=== PATIENT | male | born 1990 | race Asian ===

== ENCOUNTER 2017-03-29 23:04 | Observation (INO) | payer OTHER ==
[~2017-03-29] VITALS: Ht 170.2 cm; Wt 72.6 kg
[2017-03-29] MEDS ORDERED: KETOROLAC TROMETHAMINE 30 MG/ML VIAL IV STA (23:29)
--- NOTE | 2017-03-29 23:40 | EMERGENCY ROOM VISIT NOTE ---
History Report prepared by Lynsey: Mague Denton Under the Supervision of: Dr. Sunni Harding D.O. First contact with patient: 23:23 Chief Complaint: FLANK PAIN Stated Complaint: URINARY SYMPTOMS History of Present Illness The patient is a 27 year old male who presents to the Emergency Room with complaints of persistent right flank pain that began prior to arrival. He currently rates his discomfort as a 3/10 in severity. The patient states that he went to Urgent Care yesterday after experiencing urinary symptoms for several days. He states that he was placed on Cipro and diagnosed with a urinary tract infection without giving a urinalysis. The patient states that he has noticed a dull pain to his left testicle and right flank. He states that today after a run he developed worsening pain to his right flank. The patient denies any history of a previous kidney stone. He denies any abdominal pain, but notes abdominal distention. The patient states that he has been experiencing heart palpitations and shakiness since being on the Cipro. He states that he works out often, noting that he runs every day. Source of History: patient Onset: prior to arrival Position: other (right flank) Symptom Intensity: 3/10 Quality: dull Timing: other (persistent) Note: Associated Symptoms: abdominal distention, heart palpitations, shakiness, dull pain to testicle Review of Systems See HPI for pertinent positives & negatives. A total of 10 systems reviewed and were otherwise negative. Past Medical & Surgical Medical Problems: (1) Urinary tract infection Family History No pertinent family history stated. Social History Smoking Status: Never Smoker Marital Status: single Occupation Status: [employer] student Current/Historical Medications Scheduled Ciprofloxacin Hcl (Cipro), 500 MG PO BID Scheduled PRN Ibuprofen (Motrin), 400 MG PO Q6H PRN for Pain Allergies Coded Allergies: Penicillins (Unverified Allergy, Unknown, childhood, 03/30/17) Physical Exam Vital Signs Date Time Temp Pulse Resp B/P (MAP) Pulse Ox O2 Delivery O2 Flow Rate FiO2 03/30/17 01:49 116 19 03/30/17 01:04 89 20 97 03/30/17 00:04 103 19 161/77 98 03/29/17 23:34 109 21 03/29/17 23:31 119/95 03/29/17 23:19 106 20 98 03/29/17 23:18 141/70 03/29/17 23:13 37.6 109 19 141/70 98 Room Air Physical Exam HEENT: Head - normocephalic and atraumatic Pupils are equal, round, and reactive to light. Extraocular eye muscles are intact, and sclera are anicteric. Nose - moist nasal mucosa without discharge. Mouth - moist buccal mucosa. Oropharynx is nonerythematous and there is no tonsillar exudate or edema noted. Neck: Supple; no JVD, nuchal rigidity, cervical lymphadenopathy. Heart: Tachycardic rate and regular rhythm. There is a normal S1 and S2 with no murmurs, clicks, or gallops appreciated. Lungs: Clear to auscultation bilaterally with no wheezes, rales, or rhonchi. Abdomen: Soft, completely nontender, nondistended, with good bowel sounds. There are no palpable pulsatile masses or hepatosplenomegaly. There is no guarding, rigidity, or rebound noted. Back: Right flank pain with palpation. No vesicular lesions noted on the skin. There was some mild erythema secondary to the patient scratching himself. Gu: Patient has no abnormal findings in the testicle, no tenderness, uncircumcised male genitalia. Extremities: No evidence of cyanosis, clubbing, or edema. There are easily palpable peripheral pulses. Skin: warm and dry with good turgor and no rashes. Medical Decision & Procedures ER Provider Diagnostic Interpretation: Radiology results as stated below per my review and the radiologist's interpretation: CT ABDOMEN AND PELVIS: No obstructing radiopaque urolithiasis or secondary sequela. Normal appearing appendix. Contracted gallbladder. Moderate colonic fecal retention. No free air or fluid. Patchy sclerosis bilateral superior femoral heads; differential considerations would include reactive sclerosis as well as possible early AVN. Radiologist: Jaime Fan MD Study ready at [id number] and initial results transmitted at 0057 Laboratory Results 03/29/17 23:10 Red Blood Count 5.38, Mean Corpuscular Volume 87.4, Mean Corpuscular Hemoglobin 30.1, Mean Corpuscular Hemoglobin Concent 34.5, Mean Platelet Volume 9.5, Neutrophils (%) (Auto) 79.0, Lymphocytes (%) (Auto) 13.1, Monocytes (%) (Auto) 5.9, Eosinophils (%) (Auto) 1.4, Basophils (%) (Auto) 0.3, Neutrophils # (Auto) 8.02, Lymphocytes # (Auto) 1.33, Monocytes # (Auto) 0.60, Eosinophils # (Auto) 0.14, Basophils # (Auto) 0.03 03/29/17 23:10 Test 03/29/17 23:10 03/29/17 23:40 03/30/17 01:45 White Blood Count 10.15 K/uL (4.8-10.8) Red Blood Count 5.38 M/uL (4.7-6.1) Hemoglobin 16.2 g/dL (14.0-18.0) Hematocrit 47.0 % (42-52) Mean Corpuscular Volume 87.4 fL (80-100) Mean Corpuscular Hemoglobin 30.1 pg (25-34) Mean Corpuscular Hemoglobin Concent 34.5 g/dl (32-36) Platelet Count 359 K/uL (130-400) Mean Platelet Volume 9.5 fL (7.4-10.4) Neutrophils (%) (Auto) 79.0 % Lymphocytes (%) (Auto) 13.1 % Monocytes (%) (Auto) 5.9 % Eosinophils (%) (Auto) 1.4 % Basophils (%) (Auto) 0.3 % Neutrophils # (Auto) 8.02 K/uL (1.4-6.5) Lymphocytes # (Auto) 1.33 K/uL (1.2-3.4) Monocytes # (Auto) 0.60 K/uL (0.11-0.59) Eosinophils # (Auto) 0.14 K/uL (0-0.5) Basophils # (Auto) 0.03 K/uL (0-0.2) RDW Standard Deviation 39.7 fL (36.4-46.3) RDW Coefficient of Variation 12.4 % (11.5-14.5) Immature Granulocyte % (Auto) 0.3 % Immature Granulocyte # (Auto) 0.03 K/uL (0.00-0.02) Anion Gap 12.0 mmol/L (3-11) Est Creatinine Clear Calc Drug Dose 66.0 ml/min Estimated GFR () 68.4 Estimated GFR (Non- 59.0 BUN/Creatinine Ratio 9.1 (10-20) Calcium Level 9.6 mg/dl (8.5-10.1) Magnesium Level 1.9 mg/dl (1.8-2.4) Total Bilirubin 0.4 mg/dl (0.2-1) Direct Bilirubin 0.1 mg/dl (0-0.2) Aspartate Amino Transf (AST/SGOT) 40 U/L (15-37) Alanine Aminotransferase (ALT/SGPT) 61 U/L (12-78) Alkaline Phosphatase 105 U/L (45-117) Total Protein 7.1 gm/dl (6.4-8.2) Albumin 4.5 gm/dl (3.4-5.0) Urine Color YELLOW Urine Appearance CLEAR (CLEAR) Urine pH 5.0 (4.5-7.5) Urine Specific [place] 1.013 (1.000-1.030) Urine Protein NEG (NEG) Urine Glucose (UA) NEG (NEG) Urine Ketones NEG (NEG) Urine Occult Blood NEG (NEG) Urine Nitrite NEG (NEG) Urine Bilirubin NEG (NEG) Urine Urobilinogen NEG (NEG) Urine Leukocyte Esterase NEG (NEG) Bedside Lactic Acid Venous 1.17 mmol/L (0.90-1.70) Laboratory results per my review. Medications Administered Medications (Trade) Dose Ordered Sig/Ignacio Route Start Time Stop Time Status Last Admin Dose Admin Ketorolac Tromethamine (Toradol Inj) 30 mg NOW STAT IV 03/29/17 23:29 03/29/17 23:33 DC 03/29/17 23:44 30 MG Sodium Chloride 1,000 ml @ 250 mls/hr Q4H STAT IV 03/30/17 01:32 03/30/17 04:14 DC 03/30/17 01:32 250 MLS/HR Potassium Chloride (Kcl 10 Meq / Wtr) 10 meq NOW STAT IV 03/30/17 01:32 03/30/17 01:33 DC 03/30/17 02:07 10 MEQ Procedure Medications Administered: Toradol Inj 30 mg IV, Potassium Chloride 10 meq IV, Sodium Chloride 1000 ml @ 250 mls/hr IV. ED Course 2326: Past medical records reviewed. The patient was evaluated in room A11B. A complete history and physical exam was performed. An IV lock was initiated and labs were drawn as above 2329: Ordered Toradol Inj 30 mg IV. 0120: I reevaluated the patient and he states that his back pain is only slightly better. He states that the real reason he came here was that he was still having left testicular pain. I performed a exam at this time. See physical exam for further detail. I discussed all the exam findings with him and I discussed the treatment plan. He verbalized complete understanding and agreement. He will be evaluated for further treatment. 0132: Potassium Chloride 10 meq IV, Sodium Chloride 1000 ml @ 250 mls/hr IV. 1342: I discussed the patients case with BELINDA Hernandez. He is going to evaluate the patient for further treatment. 1345: I reevaluated the patient at this time and he informed me that he takes several supplements. He additionally notes that he has been running excessively. Medical Decision The patient is a 27 year old male who presents to the ED with right flank pain. Differential diagnosis includes pyelonephritis, infected kidney stone, ureteral colic, rhabdomyolysis. Lab interpretation: Normal white blood cell count, Stable H&H, potassium is low at 3, BUN 15, Creatinine 1.6, glucose 203, urinalysis is normal, no blood. I attest that I have personally reviewed the patient's current medication list. Blood Pressure Screening: Patient was found to have a slightly elevated blood pressure due to circumstances. I do not believe that the patient requires hypertension monitoring. This is a 27-year-old male patient who presents with a mild fever and right flank pain. I'm concerned about the possibility of pyelonephritis. The patient 's currently taking Cipro but continues to have some dysuria, right flank pain, left testicular pain, and fever. The patient was noted to be significantly hyperglycemic and hypokalemic. The patient denies any history of hyperglycemia or diabetes. I discussed the case with the [facility] hospitalist and they will evaluate for further management. Consults Time Called: 0128 Consulting Physician: BELINDA Hernandez Returned Call: 1342 I discussed the patients case with BELINDA Hernandez. He is going to evaluate the patient for further treatment. Impression Primary Impression: Pyelonephritis Additional Impressions: Acute kidney injury Hyperglycemia Hypokalemia Scribe Attestation The scribe's documentation has been prepared under my direction and personally reviewed by me in its entirety. I confirm that the note above accurately reflects all work, treatment, procedures, and medical decision making performed by me. Departure Information Dispostion Being Evaluated By Hospitalist Problem Qualifiers
[2017-03-29 23:42] LABS: BASO % 0.3 %; BASO ABS # 0.03 K/uL (0-0.2); COMPLETE YES; EOS % 1.4 %; IG% 0.3 %; LYMPH % 13.1 %; LYMPH ABS # 1.33 K/uL (1.2-3.4); MEAN CELL VOLUME 87.4 fL (80-100); MEAN CORPUSCULAR HEMOGLOBIN 30.1 pg (25-34); MEAN CORPUSCULAR HGB CONC 34.5 g/dl (32-36); MEAN PLATELET VOLUME 9.5 fL (7.4-10.4); MONO % 5.9 %; PLATELET COUNT 359 K/uL (130-400); RED BLOOD COUNT 5.38 M/uL (4.7-6.1); WHITE BLOOD COUNT 10.15 K/uL (4.8-10.8)
[2017-03-29 23:54] LABS: URINE APPEARANCE CLEAR (CLEAR); URINE BILIRUBIN NEG (NEG); URINE COLOR YELLOW; URINE NITRITE NEG (NEG); URINE SPECIFIC GRAVITY 1.013 (1.000-1.030); UROBILINOGEN NEG (NEG)
[2017-03-29 23:56] LABS: MANUAL MICROSCOPIC REQUIRED? NO; REVIEW REQ? NO
[2017-03-29 23:59] LABS: BUN/CREATININE RATIO 9.1 (10-20); CALCIUM 9.6 mg/dl (8.5-10.1); CREATININE 1.6 mg/dl (0.60-1.40)
[2017-03-30] MEDS ORDERED: CIPR-255 PO (00:34)
[2017-03-30] MEDS ORDERED: IBUP-1459 PO (00:35)
[2017-03-30] MEDS ORDERED: POTASSIUM CHLORIDE 10 MEQ / 100ML WTR IV STA (01:32)
[2017-03-30] MEDS ORDERED: SODIUM CHLORIDE 0.9% 1000ML 1,000 ML IV STA (01:32)
[2017-03-30] MEDS ORDERED: ACETAMINOPHEN 325 MG TAB PO PRN (02:00)
[2017-03-30] MEDS ORDERED: ONDANSETRON INJ 2 MG/ML 2 ML VIAL IV PRN (02:00)
[2017-03-30 02:15] LABS: MAGNESIUM 1.9 mg/dl (1.8-2.4)
[2017-03-30] MEDS ORDERED: IV FLUIDS COMPLETED PRN (02:15)
[2017-03-30] MEDS ORDERED: POTASSIUM CHLORIDE 10 MEQ TABCR PO STA (02:47)
[2017-03-30 04:00] VITALS: BP 128/77; PULSE 93; TEMP 37.2; O2SAT 95; Ht 170.2 cm; Wt 72.6 kg
--- NOTE | 2017-03-30 04:37 | History and Physical ---
History & Physical Date & Time of Service: Mar 30, 2017 at 04:24 Chief Complaint: Acute Kidney Injury Primary Care Physician: No Doctor, Assigned History of Present Illness Source: patient The patient is a 27-year-old male who presents to the emergency department with right flank pain that began prior to arrival. He was seen at urgent care yesterday, and was placed on Cipro for presumptive urinary tract infection but did not have a urinalysis. The pain occasionally radiates toward his right testicle. He has not had a history of kidney stones or any other kidney problems in the past. He reports that he's been having heart palpitations in the past, but has been worse since he started on Cipro yesterday. He does upon questioning report that he takes several muscle building supplements. Past Medical/Surgical History Medical Problems: (1) Urinary tract infection Status: Resolved Social History Smoking Status: Never Smoker Smokeless Tobacco Use: No Alcohol Use: none Drug Use: none Marital Status: single Housing status: lives alone Occupational Status: [employer] student Multi-Drug Resistant Organisms History of MDRO: No Allergies Coded Allergies: Penicillins (Unverified Allergy, Unknown, childhood, 03/30/17) Home Medications Scheduled Ciprofloxacin Hcl (Cipro), 500 MG PO BID Scheduled PRN Ibuprofen (Motrin), 400 MG PO Q6H PRN for Pain Review of Systems The patient denies chest pain, shortness of breath, cough, lower extremity swelling, sore throat, fevers, chills, sweats, weight change, fatigue, nausea, vomiting, blood in urine or stool, dysuria, urinary frequency or urgency, lightheadedness, dizziness, headache, memory loss, rash, abnormal bruising or bleeding, imbalance, focal or generalized weakness, numbness or tingling in arms or legs, arthralgias or myalgias, night sweats, or allergy symptoms. The review of systems is otherwise negative other than for that already noted above, and at least 10 systems have been reviewed. Physical Exam Vital Signs Date Time Temp Pulse Resp B/P (MAP) Pulse Ox O2 Delivery O2 Flow Rate FiO2 03/30/17 04:00 37.2 93 20 128/77 95 Room Air 03/30/17 03:06 92 17 134/70 97 03/30/17 02:49 95 12 96 03/30/17 02:34 105 17 96 03/30/17 02:31 159/76 03/30/17 02:19 115 19 95 03/30/17 02:08 152/80 03/30/17 01:49 116 19 03/30/17 01:04 89 20 97 03/30/17 00:04 103 19 161/77 98 03/29/17 23:34 109 21 03/29/17 23:31 119/95 03/29/17 23:19 106 20 98 03/29/17 23:18 141/70 03/29/17 23:13 37.6 109 19 141/70 98 Room Air The patient is awake, well-developed and adequately nourished, alert and oriented 3, normocephalic and atraumatic, lying in bed and in no acute distress. HEENT--PERRL, EOMI, mucous membranes and oropharynx dry. Neck--supple, no JVD or bruits, thyroid normal, trachea midline, no adenopathy. Heart--normal S1 and S2, no extra beats, no murmurs, rubs or gallops. Lungs--clear bilaterally with good air movement, no respiratory distress, no accessory muscle use. Abdomen--normal bowel sounds and soft, right flank tenderness, nondistended, no hernias or masses, no organomegaly. Extremities--no cyanosis, clubbing or edema. There are good distal pulses b/l. Dermatologic--normal skin turgor, normal color, warm and dry, no abnormal lymph nodes, no rash. Neurologic--cranial nerves II through XII grossly intact, motor and sensory examination normal. Rheumatologic--normal range of motion, nontender, muscles and joints. Psychiatric--normal affect. Diagnostics Laboratory Results Results Past 24 Hours Test 03/29/17 23:10 03/29/17 23:40 03/30/17 01:45 Range/Units White Blood Count 10.15 4.8-10.8 K/uL Red Blood Count 5.38 4.7-6.1 M/uL Hemoglobin 16.2 14.0-18.0 g/dL Hematocrit 47.0 42-52 % Mean Corpuscular Volume 87.4 80-100 fL Mean Corpuscular Hemoglobin 30.1 25-34 pg Mean Corpuscular Hemoglobin Concent 34.5 32-36 g/dl Platelet Count 359 130-400 K/uL Mean Platelet Volume 9.5 7.4-10.4 fL Neutrophils (%) (Auto) 79.0 % Lymphocytes (%) (Auto) 13.1 % Monocytes (%) (Auto) 5.9 % Eosinophils (%) (Auto) 1.4 % Basophils (%) (Auto) 0.3 % Neutrophils # (Auto) 8.02 1.4-6.5 K/uL Lymphocytes # (Auto) 1.33 1.2-3.4 K/uL Monocytes # (Auto) 0.60 0.11-0.59 K/uL Eosinophils # (Auto) 0.14 0-0.5 K/uL Basophils # (Auto) 0.03 0-0.2 K/uL RDW Standard Deviation 39.7 36.4-46.3 fL RDW Coefficient of Variation 12.4 11.5-14.5 % Immature Granulocyte % (Auto) 0.3 % Immature Granulocyte # (Auto) 0.03 0.00-0.02 K/uL Sodium Level 134 136-145 mmol/L Potassium Level 3.0 3.5-5.1 mmol/L Chloride Level 96 98-107 mmol/L Carbon Dioxide Level 26 21-32 mmol/L Anion Gap 12.0 3-11 mmol/L Blood Urea Nitrogen 15 7-18 mg/dl Creatinine 1.60 0.60-1.40 mg/dl Est Creatinine Clear Calc Drug Dose 66.0 ml/min Estimated GFR () 68.4 Estimated GFR (Non- 59.0 BUN/Creatinine Ratio 9.1 10-20 Random Glucose 203 70-99 mg/dl Calcium Level 9.6 8.5-10.1 mg/dl Magnesium Level 1.9 1.8-2.4 mg/dl Total Bilirubin 0.4 0.2-1 mg/dl Direct Bilirubin 0.1 0-0.2 mg/dl Aspartate Amino Transf (AST/SGOT) 40 15-37 U/L Alanine Aminotransferase (ALT/SGPT) 61 12-78 U/L Alkaline Phosphatase 105 45-117 U/L Total Protein 7.1 6.4-8.2 gm/dl Albumin 4.5 3.4-5.0 gm/dl Urine Color YELLOW Urine Appearance CLEAR CLEAR Urine pH 5.0 4.5-7.5 Urine Specific [place] 1.013 1.000-1.030 Urine Protein NEG NEG Urine Glucose (UA) NEG NEG Urine Ketones NEG NEG Urine Occult Blood NEG NEG Urine Nitrite NEG NEG Urine Bilirubin NEG NEG Urine Urobilinogen NEG NEG Urine Leukocyte Esterase NEG NEG Bedside Lactic Acid Venous 1.17 0.90-1.70 mmol/L Microbiology Results 03/30/17 Blood Culture, Received Pending 03/30/17 Blood Culture, Received Pending 03/29/17 Urine Culture, Received Pending Impression Assessment and Plan Acute kidney injury/hypokalemia/elevated temperature/right flank pain/with normal CT of abdomen and pelvis--the patient will be admitted to the telemetry unit due to tachycardia. He will be kept nothing by mouth, place on IV fluids at 200 ML's per hour. We'll order a renal ultrasound. We'll consult nephrology for the a.m. He was advised to stop all muscle building supplements. CK enzymes have been added to the ED laboratories to assess for possible rhabdomyolysis. We will hold on any antibiotics at this time. He was given oral potassium 40 mEq in the ED. We'll also add a urine microalbumin. Hyperglycemia--blood sugar was 203. We'll check hemoglobin A1c in the a.m. The patient reports he's had no history of elevated blood sugars, and there is no diabetes in the family. Level of Care Telemetry Advanced Directives Existing Advance Directive: No Existing Living Will: No Existing Power of Music Autographer: No Resuscitation Status FULL RESUSCITATION VTE Prophylaxis VTE Risk Assessment Done? Y/N: Yes Risk Level: Low Given or contraindicated: SCD's Social Service Consult None Apply
[2017-03-30] MEDS: SODIUM CHLORIDE 0.9% 1000ML 1,000 ML IV SCH ×2 (04:38→07:30)
--- NOTE | 2017-03-30 06:51 | DIAGNOSTIC IMAGING REPORT ---
ABDOMEN AND PELVIS CT WITHOUT CONTRAST CT DOSE: 754.49 mGy.cm HISTORY: Flank pain. Pain. eval for right sided stone TECHNIQUE: Multiaxial CT images of the abdomen and pelvis were performed without the use of intravenous and oral contrast according to the standard department stone protocol. COMPARISON STUDY: None. FINDINGS: Lung bases are clear. Liver spleen and pancreas are unremarkable in overall morphology. Kidneys are considered negative for calcification or hydronephrosis. Ureters normal in course and caliber. The appendix is normal. Bowel pattern is nonobstructive. Bladder is midline. There are no contained calcifications. There are scattered colonic diverticuli. There is no evidence of diverticulitis. IMPRESSION: Scattered colonic diverticuli. Otherwise negative study. Electronically signed by: Davey Pennington M.D. 03/30/2017 6:50 AM Dictated Date/Time: 03/30/2017 6:48 AM
--- NOTE | 2017-03-30 07:05 | DIAGNOSTIC IMAGING REPORT ---
RENAL ULTRASOUND HISTORY: Renal insufficiency ACUTE KIDNEY INJURY COMPARISON: None. FINDINGS: Right kidney: Maximum dimension 9.7 cm. No evidence for hydronephrosis. Normal corticomedullary differentiation and cortical thickness. Left kidney: Maximum dimension 10.3 cm. No evidence for hydronephrosis. Normal corticomedullary differentiation and cortical thickness. Bladder: Trace bladder debris IMPRESSION: Normal renal ultrasound. Trace bladder debris. Electronically signed by: Davey Pennington M.D. 03/30/2017 7:04 AM Dictated Date/Time: 03/30/2017 7:03 AM
[2017-03-30 07:24] VITALS: BP 114/67; PULSE 68; TEMP 36.7; O2SAT 96
[2017-03-30 07:39] LABS: ESTIMATED AVERAGE GLUCOSE 108 mg/dl; HA1C FLAG Normal (Normal)
[2017-03-30 10:09] LABS: BUN/CREATININE RATIO 10.5 (10-20); CALCIUM 9.1 mg/dl (8.5-10.1); CREATININE 1.1 mg/dl (0.60-1.40); PHOSPHORUS 3.2 mg/dl (2.5-4.9); POTASSIUM 3.8 mmol/L (3.5-5.1)
--- NOTE | 2017-03-30 11:04 | Nephrology Consultation ---
Nephrology Consultation Date & Providers Date of Consultation: Mar 30, 2017. Primary Care Provider: No Doctor, Assigned Referring Provider: Reason for Consultation Evaluation and management for acute kidney injury and hypokalemia. History of Present Illness Babatunde Is a 27-year-old young male with no significant past medical history admitted to the hospital yesterday with her back and flank pain and palpitation. Nephrologic consult was requested as he was found to have acute kidney injury. Electronic medical records were reviewed in detail during patient's visit. He was doing well until 3 days ago when he started noticing some testicular discomfort. he went to urgent care and he was given Cipro and ibuprofen and was told he has urinary tract infection. Yesterday afternoon he started noticing palpitation, abdominal brought doing and sharp pain in his lower back and presented to the emergency room for further evaluation. Lab in the ED showed acute kidney injury, creatinine was 1.6 with no prior history of chronic kidney disease. Potassium was 3.0. He had low-grade fever but no leukocytosis. Urinalysis was negative for hematuria, proteinuria pyuria. Renal ultrasound showed otherwise normal size kidney without any hydronephrosis or perinephric stranding. Abdomen pelvis CT scan was negative for any significant intra- abdominal pathology. Was admitted and started on IV hydration. ibuprofen and ciprofloxacin was discontinued. He reports he has been drinking well but since yesterday he also noticed abdominal distension. He has been urinating well. Currently denies any dysuria, hematuria. his back pain seems to have improved but still has some discomfort. Still has occasional discomfort in his left testicle. He has been tachycardic, heart rate now controlled and denies any palpitation, chest pain or shortness of breath. Initially blood pressure was elevated which currently improved. On admission blood glucose was elevated which improved this morning and hemoglobin A1c was 5.4, no history of diabetes. Allergies Coded Allergies: Penicillins (Unverified Allergy, Unknown, childhood, 03/30/17) Inpatient Medications Current Inpatient Medications Medications (Trade) Dose Ordered Sig/Ignacio Route Start Time Stop Time Status Last Admin Dose Admin Sodium Chloride 1,000 ml @ 200 mls/hr Q5H IV 03/30/17 04:15 04/29/17 04:14 03/30/17 07:30 200 MLS/HR Acetaminophen (Tylenol Tab) 650 mg Q4H PRN PO 03/30/17 02:00 04/29/17 01:59 Ondansetron HCl (Zofran Inj) 4 mg Q6H PRN IV 03/30/17 02:00 04/29/17 01:59 Miscellaneous (Iv Fluids Completed) 1 ea PRN PRN N/A 03/30/17 02:15 03/30/18 02:14 Social History Smoking Status: Never Smoker Smokeless Tobacco Use: No Alcohol Use: none Drug Use: none Marital Status: single Housing Status: lives alone Occupation: [employer] student Review of Systems A complete review of systems was performed. Pertinent positives are noted above. All other systems are negative. Physical Exam Date Time Temp Pulse Resp B/P (MAP) Pulse Ox O2 Delivery O2 Flow Rate FiO2 03/30/17 08:00 Room Air 03/30/17 07:24 36.7 68 18 114/67 (83) 96 Room Air 03/30/17 04:00 37.2 93 20 128/77 95 Room Air 03/30/17 03:06 92 17 134/70 97 03/30/17 02:49 95 12 96 03/30/17 02:34 105 17 96 03/30/17 02:31 159/76 03/30/17 02:19 115 19 95 03/30/17 02:08 152/80 03/30/17 01:49 116 19 03/30/17 01:04 89 20 97 03/30/17 00:04 103 19 161/77 98 03/29/17 23:34 109 21 03/29/17 23:31 119/95 03/29/17 23:19 106 20 98 03/29/17 23:18 141/70 03/29/17 23:13 37.6 109 19 141/70 98 Room Air GENERAL: Young male, AAA x 3, pleasant, healthy-appearing, not in any distress. HEENT: Atraumatic, normocephalic. NECK: Supple, no JVD, no carotid bruit appreciated. ENT: No sinus tenderness MOUTH and THROAT: Moist oral mucosa, no oral ulcer or pharyngeal erythema RESPIRATORY: Normal breathing efforts, no accessory muscle use, clear to auscultation bilaterally, no wheezes or rales. CARDIOVASCULAR: S1, S2 normal, rate rhythm regular. ABDOMEN: Soft, nontender, positive bowel sound. MUSCULOSKELETAL: No CVA tenderness. No joint swelling, erythema or tenderness. Normal range of motion. SKIN: No skin rash EXTREMITY: No lower extremity edema NEURO: No gross focal neurological deficit, speech fluent. PSYCHIATRY: Normal mood and judgment Laboratory Results Last 24 Hours Test 03/29/17 23:10 03/29/17 23:40 03/30/17 01:45 03/30/17 04:58 White Blood Count 10.15 K/uL Red Blood Count 5.38 M/uL Hemoglobin 16.2 g/dL Hematocrit 47.0 % Mean Corpuscular Volume 87.4 fL Mean Corpuscular Hemoglobin 30.1 pg Mean Corpuscular Hemoglobin Concent 34.5 g/dl Platelet Count 359 K/uL Mean Platelet Volume 9.5 fL Neutrophils (%) (Auto) 79.0 % Lymphocytes (%) (Auto) 13.1 % Monocytes (%) (Auto) 5.9 % Eosinophils (%) (Auto) 1.4 % Basophils (%) (Auto) 0.3 % Neutrophils # (Auto) 8.02 K/uL Lymphocytes # (Auto) 1.33 K/uL Monocytes # (Auto) 0.60 K/uL Eosinophils # (Auto) 0.14 K/uL Basophils # (Auto) 0.03 K/uL RDW Standard Deviation 39.7 fL RDW Coefficient of Variation 12.4 % Immature Granulocyte % (Auto) 0.3 % Immature Granulocyte # (Auto) 0.03 K/uL Sodium Level 134 mmol/L Potassium Level 3.0 mmol/L Chloride Level 96 mmol/L Carbon Dioxide Level 26 mmol/L Anion Gap 12.0 mmol/L Blood Urea Nitrogen 15 mg/dl Creatinine 1.60 mg/dl Est Creatinine Clear Calc Drug Dose 66.0 ml/min Estimated GFR () 68.4 Estimated GFR (Non- 59.0 BUN/Creatinine Ratio 9.1 Random Glucose 203 mg/dl Calcium Level 9.6 mg/dl Magnesium Level 1.9 mg/dl Total Bilirubin 0.4 mg/dl Direct Bilirubin 0.1 mg/dl Aspartate Amino Transf (AST/SGOT) 40 U/L Alanine Aminotransferase (ALT/SGPT) 61 U/L Alkaline Phosphatase 105 U/L Total Creatine Kinase 580 U/L 633 U/L Total Protein 7.1 gm/dl Albumin 4.5 gm/dl Urine Color YELLOW Urine Appearance CLEAR Urine pH 5.0 Urine Specific [place] 1.013 Urine Protein NEG Urine Glucose (UA) NEG Urine Ketones NEG Urine Occult Blood NEG Urine Nitrite NEG Urine Bilirubin NEG Urine Urobilinogen NEG Urine Leukocyte Esterase NEG Urine Random Microalbumin 11.8 mg/L Bedside Lactic Acid Venous 1.17 mmol/L Estimated Average Glucose 108 mg/dl Hemoglobin A1c 5.4 % Test 03/30/17 09:01 Sodium Level 143 mmol/L Potassium Level 3.8 mmol/L Chloride Level 109 mmol/L Carbon Dioxide Level 28 mmol/L Anion Gap 6.0 mmol/L Blood Urea Nitrogen 12 mg/dl Creatinine 1.10 mg/dl Est Creatinine Clear Calc Drug Dose 96.0 ml/min Estimated GFR () 107.6 Estimated GFR (Non- 92.8 BUN/Creatinine Ratio 10.5 Random Glucose 91 mg/dl Calcium Level 9.1 mg/dl Phosphorus Level 3.2 mg/dl Albumin 3.7 gm/dl Impression (1) Acute kidney injury (2) Hypokalemia (3) Hyperglycemia Young male with acute kidney injury with recent exposure to Cipro and ibuprofen for testicular discomforted. Creatinine was 1.6 on admission with no prior history of chronic kidney disease. Urinalysis was negative for proteinuria hematuria pyuria. Renal ultrasound and abdomen pelvis CT scan was otherwise unremarkable. Acute kidney injury could be hemodynamically mediated in the setting of NSAID exposure and questionable poor p.o. intake with antibiotic. Unlikely pyelonephritis or acute interstitial nephritis as a urinalysis benign, renal ultrasound and CT imaging was otherwise unremarkable. Recommendations --currently blood pressure, volume status and electrolyte acceptable, potassium normalized, acute kidney injury resolved, creatinine from this morning lab was 1.2, urinalysis otherwise unremarkable. --Suggest discontinuing IV fluid as patient reports them decent appetite and p.o. intake -- advise patient to avoid all NSAIDs going forward and avoid volume depletion --will sign off and no further nephrology follow-up needed at this time -- however, going forward patient should have sent a repeat renal function electrolyte check few days after discharge and if everything stays normal then he should have renal panel and urinalysis in next few months. Thank you for allowing me to participate in your patient's care. It was a pleasure to see Hongru This chart was completed utilizing [employer] Speech and voice recognition software. Grammatical errors, random word insertions, pronoun errors and incomplete sentences are occasional consequences of this system. Any questions or concerns about the content, text or information contained within the body of this dictation should be addressed directly to the physician for clarification.
[2017-03-30 11:41] VITALS: BP 120/76; PULSE 69; TEMP 37; O2SAT 94
--- NOTE | 2017-03-30 11:57 | Discharge Instructions ---
Discharge Instructions Date of Service Mar 30, 2017. Admission Reason for Admission: Acute Kidney Injury Discharge Discharge Diagnosis / Problem: Acute kidney injury, resolved Discharge Goals Goal(s): Improve function, Diagnostic testing (repeat labs in a week) Activity Recommendations Activity Limitations: resume your previous activity Lifting Limitations: none Exercise/Sports Limitations: as tolerated May Resume Sexual Activity: when tolerated Shower/Bathe: no limitations Driving or Machine Use: no limitations . Instructions / Follow-Up Instructions / Follow-Up Medications: You need to avoid NSAIDs in the future (ibuprofen, naproxen etc). You can safely use Tylenol for pain. avoid muscle supplements Nephrology recommends that you get repeat lab work in 10 days. Please bring script to front entrance of hospital and they will set up for blood draw. You will need a urinalysis so be sure to come to lab with full bladder. They will page me with results and I will call you if anything abnormal FOLLOW UP - please establish with a physician in [place] when you move there. You will need repeat BMP, magnesium, phosphorus and urinalysis in a few months. Current Hospital Diet Patient's current hospital diet: Regular Diet Discharge Diet Recommended Diet: Regular Diet Pending Studies Studies pending at discharge: no Laboratory Results Hemoglobin A1c Test 03/30/17 04:58 Range/Units Estimated Average Glucose 108 mg/dl Hemoglobin A1c 5.4 4.5-5.6 % Medical Emergencies . Who to Call and When: Medical Emergencies: If at any time you feel your situation is an emergency, please call 911 immediately. . Non-Emergent Contact Non-Emergency issues call your: Primary Care Provider Call Non-Emergent contact if: you have any medication questions . . "Provider Documentation" section prepared by Vinicio Pimentel. . VTE Core Measure Inpt VTE Proph given/why not?: SCD's [place] Drug Monitoring Program Search Results: no issues identified
[2017-03-30 12:01] VITALS: BP 120/76; PULSE 69; TEMP 37; O2SAT 94
--- NOTE | 2017-03-31 08:11 | Discharge Summary ---
Discharge Summary Date of Service March 30, 2017. Discharge Summary Admission Date: Mar 30, 2017 at 01:54 Discharge Date: Mar 30, 2017 Discharge Disposition: Home Principal Diagnosis: DWAINE, resolved Problems/Secondary Diagnoses: Hyperglycemia, normal HbA1c Elevated CK Procedures: Renal US - normal CT abdomen/pelvis - normal Consultations: Nephrology Medication Reconciliation Discontinued Medications: Ciprofloxacin Hcl (Cipro) 500 Mg Tab 500 MG PO BID for 7 Days, #14 TAB BEGIN 03/28/17 X 7 DAYS Ibuprofen (Motrin) 400 Mg Tab 400 MG PO Q6H PRN for Pain, TAB Discharge Exam Patient was feeling fine the day of discharge in the morning. Discussed with him that his Cr was trending down appropriately. He had no signs of infection on either UA or imaging and thus the Cipro could be stopped. He reported that he did not really take NSAIDs very often, certainly not taking them recently. Appreciated consultation from Dr. Davenport, recommended d/c to home with repeat labs in a week. Went over details of discharge plan with patient. He said that he had graduated from [employer] and was moving to [place] in early May for a graduate program at [employer]. He did not have a family doctor. I offered to follow up on his lab work, planned to get labs the week of 04/09 the next time I would be on shift, script given for BMP and UA for that week. Patient instructed to drink water and get rest, no excessive exercise, no NSAIDs and no muscle supplements. Review of Systems: Constitutional: No fever, No chills, No sweats, No weight loss, No weakness , No fatigue, No problem reported Eyes: No worsening of vision, No eye pain, No redness, No discharge, No diplopia, No problem reported ENT: No hearing loss, No unusual epistaxis, No nasal symptoms, No sore throat, No tinnitus, No dental problems, No trouble swallowing, No problem reported Respiratory: No cough, No sputum, No wheezing, No shortness of breath, No dyspnea on exertion, No dyspnea at rest, No hemoptysis, No problem reported Cardiovascular: No chest pain, No orthopnea, No PND, No edema, No claudication, No palpitations, No problem reported Abdomen: No pain, No nausea, No vomiting, No diarrhea, No constipation, No GI bleeding, No problem reported Musculoskeletal: No joint pain, No muscle pain, No swelling, No calf pain, No problem reported Genitourinary - Male: No hematuria, No dysuria, No urinary frequency, No urinary urgency Neurologic: No memory loss, No paralysis, No weakness, No numbness/tingling , No vertigo, No balance problems, No problem reported Psychiatric: No depression symptoms, No anhedonism, No anxiety, No insomnia , No substance abuse, No problem reported Endocrine: No fatigue, No excessive thirst, No excessive urination, No problem reported Hematologic / Lymphatic: No abnormal bleeding/bruising, No clotting problems , No swollen lymph nodes, No night sweats, No problem reported Integumentary: No rash, No itch, No new/changing skin lesions, No color change, No bleeding, No problem reported Physical Exam: General Appearance: WD/WN, no apparent distress Eyes: normal inspection, EOMI, sclerae normal ENT: normal ENT inspection, hearing grossly normal, pharynx normal Neck: supple, no adenopathy, no JVD, trachea midline Respiratory/Chest: chest non-tender, lungs clear, normal breath sounds, no respiratory distress, no accessory muscle use Cardiovascular: regular rate, rhythm, no edema, no gallop, no JVD, no murmur , normal peripheral pulses Abdomen / GI: normal bowel sounds, non tender, soft, no organomegaly Extremities: normal inspection, no calf tenderness, normal capillary refill , no pedal edema, normal range of motion, pelvis stable Neurologic/Psychiatric: yeast pumper II-XII nml as tested, no motor/sensory deficits , alert, normal mood/affect, normal reflexes, oriented x 3 Skin: normal color, warm/dry, no rash Lymphatic: no adenopathy Hospital Course 27 yo student from [employer], presented with flank pain, elevated Cr - DWAINE: unclear etiology, no clinically dehydrated, taking Cipro but only short while, and no excessive exercise although he is quite active taking muscle supplements, says he is not taking more than instructed repeat Cr in the morning 1.1, down from 1.6 on admission after aggressive IV fluids CK mildly elevated, no muscle pain electrolytes stable reviewed imaging, CT and US showed normal kidneys, no kidney stones appreciate nephrology consult, cleared for discharge, avoid NSAIDs and supplements, get rest, fluids will repeat labs the week of 04/09 with BMP, Mag, Phos and UA moving to [place] in May, will establish care with a physician once there, should have repeat labs in several months - Hyperglycemia: unclear why, his A1c is 5.4 resolved d/c home with repeat labs in 10 days, I will personally follow up results as he does not have a physician, cannot go to [facility] [employer] cause 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 Discharge Instructions Please refer to the electronic Patient Visit Report (Discharge Instructions) for additional information. Follow-Up repeat labs in 10 days
== END 2017-03-30 12:30 | disposition home or self-care (01) ==
LOC: EDBD 23:04 → C.EDA 23:07 → C.MED 03-30 01:54 → ENRESERV 03-30 02:04
PROVIDERS: ADMIT Hospitalist; ATTEND Internal Medicine
DX: N17.9 Acute kidney failure, unspecified (principal); R73.9 Hyperglycemia, unspecified; E87.6 Hypokalemia

== ENCOUNTER 2017-03-30 18:46 | Inpatient (IN) | payer OTHER ==
[~2017-03-30] VITALS: Ht 170.2 cm; Wt 73.6 kg
[~2017-03-30 18:46] MED LIST: CIPR-255 PO; IBUP-1459 PO
[2017-03-30] MEDS ORDERED: ACETAMINOPHEN 325 MG TAB PO STA (19:08)
[2017-03-30] MEDS ORDERED: SODIUM CHLORIDE 0.9% 1000ML 1,000 ML IV STA ×2 (19:08→20:41)
[2017-03-30] MEDS ORDERED: LORAZEPAM 2 MG/ML 1 ML VIAL IV STA (19:16)
--- NOTE | 2017-03-30 19:33 | EMERGENCY ROOM VISIT NOTE ---
History Report prepared by Lynsey: Georgie Walton Under the Supervision of: Dr. Madison Rock M.D. First contact with patient: 19:00 Chief Complaint: ARM PAIN Stated Complaint: CIPRO RELATED - RT ARM PAIN,KIDNEY PAIN History of Present Illness The patient is a 27 year old male who presents to the Emergency Room with complaints of persistent right arm weakness starting today. The patient states that his "muscles are dissolving." He reports tingling in his right hand. He does not have any pain or symptoms in any other joints/extremities. He was evaluated at an Urgent Care 2 days ago for complaints of testicular pain and burning with urination. He was started on Cipro by the Urgent Care. He was admitted on March 29 for pyelonephritis. The last time he took Cipro table was about 24 hours ago. He has taken 3 tablets of Cipro in total. He stopped taking the Cipro and has not taken any further antibiotics. He had a urinalysis this morning which was normal. He also currently complains of right flank pain. He did not have anything today besides a banana and water. He did not take any supplements, homeopathic agents, or pain medications. He denies any recent heavy lifting, trauma, or injuries. He also denies fevers, chills, or any other complaints. He does not have a history of diabetes. Source of History: patient Onset: today Position: arm (right) Quality: other (weakness) Timing: other (persistent) Associated Symptoms: No fevers, No chills Review of Systems See HPI for pertinent positives & negatives. A total of 10 systems reviewed and were otherwise negative. Past Medical & Surgical Medical Problems: (1) Pyelonephritis (2) Urinary tract infection Family History Patient reports no known family medical history. Social History Smoking Status: Never Smoker Drug Use: none Marital Status: single Occupation Status: [employer] student Current/Historical Medications No Active Prescriptions or Reported Meds Allergies Coded Allergies: Penicillins (Unverified Allergy, Unknown, childhood, 03/30/17) Physical Exam Vital Signs Date Time Temp Pulse Resp B/P (MAP) Pulse Ox O2 Delivery O2 Flow Rate FiO2 03/30/17 21:00 36.9 109 20 117/61 Room Air 03/30/17 18:50 36.9 123 18 128/84 95 Room Air Physical Exam Vital signs reviewed. General: Well-appearing, in no significant distress. HEENT: No scleral icterus, PERRLA, neck supple. Atraumatic. Cardiovascular: Regular rate and rhythm, no extra sounds. Pulmonary: Clear to auscultation bilaterally, normal work of breathing. Abdomen: Soft, nontender, nondistended, positive bowel sounds. Scrotal : Normal male genitals, not circumcised, minimal tenderness over the left epididymis. Musculoskeletal: Atraumatic, no peripheral edema. Neurologic: Patient awake alert and oriented x 3. Cranial nerves 2 through 12 grossly intact. 4/5 strength of the right bicep, 5/5 in the right triceps, minimal tenderness to palpation over the proximal right arm with no swelling or ecchymosis, no pain with range of motion of the elbow, neurovascularly intact distally. Skin: Warm, dry, no rash Medical Decision & Procedures ER Provider Diagnostic Interpretation: X-ray results as stated below per interpretation by me and the radiologist: RIGHT ELBOW 3 VIEWS CLINICAL HISTORY: Right elbow injury. No reported history of trauma. FINDINGS: 3 views of the right elbow are obtained. No prior studies are available for comparison at the time of dictation. The skeletal structures are well mineralized. No fracture is seen. The joint spaces of the elbow are well-maintained. No joint effusion is identified. Dorsal soft tissue edema is noted. IMPRESSION: Mild dorsal soft tissue swelling with no acute bony abnormality. Electronically signed by: Mandeep Braun M.D. 03/30/2017 8:28 PM Dictated Date/Time: 03/30/2017 8:27 PM US results as stated below per my review and radiologist interpretation: ULTRASOUND RIGHT UPPER EXTREMITY VENOUS CLINICAL HISTORY: Right arm pain. COMPARISON STUDY: No priors.. TECHNIQUE: Real-time, grayscale, and color Doppler sonography of the deep veins of the right upper extremity is performed. Compression and augmentation were utilized. FINDINGS: There is no sonographic evidence of deep venous thrombosis identified in the right upper extremity. The right internal jugular, axillary, and brachial veins are patent and normally compressible. Normal venous waveforms and augmentation are seen within the right subclavian vein. The cephalic and basilic veins are clear. The visualized radial and ulnar veins are patent. IMPRESSION: There is no sonographic evidence of deep venous thrombosis identified in the right upper extremity. Electronically signed by: Mandeep Braun M.D. 03/30/2017 8:16 PM Dictated Date/Time: 03/30/2017 8:15 PM Laboratory Results 03/30/17 19:29 Red Blood Count 5.14, Mean Corpuscular Volume 87.7, Mean Corpuscular Hemoglobin 29.4, Mean Corpuscular Hemoglobin Concent 33.5, Mean Platelet Volume 9.1, Neutrophils (%) (Auto) 76.2, Lymphocytes (%) (Auto) 16.2, Monocytes (%) (Auto) 5.9, Eosinophils (%) (Auto) 1.1, Basophils (%) (Auto) 0.4, Neutrophils # (Auto) 3.48, Lymphocytes # (Auto) 0.74, Monocytes # (Auto) 0.27, Eosinophils # (Auto) 0.05, Basophils # (Auto) 0.02 Test 03/30/17 19:29 03/30/17 20:55 White Blood Count 4.57 K/uL (4.8-10.8) Red Blood Count 5.14 M/uL (4.7-6.1) Hemoglobin 15.1 g/dL (14.0-18.0) Hematocrit 45.1 % (42-52) Mean Corpuscular Volume 87.7 fL (80-100) Mean Corpuscular Hemoglobin 29.4 pg (25-34) Mean Corpuscular Hemoglobin Concent 33.5 g/dl (32-36) Platelet Count 303 K/uL (130-400) Mean Platelet Volume 9.1 fL (7.4-10.4) Neutrophils (%) (Auto) 76.2 % Lymphocytes (%) (Auto) 16.2 % Monocytes (%) (Auto) 5.9 % Eosinophils (%) (Auto) 1.1 % Basophils (%) (Auto) 0.4 % Neutrophils # (Auto) 3.48 K/uL (1.4-6.5) Lymphocytes # (Auto) 0.74 K/uL (1.2-3.4) Monocytes # (Auto) 0.27 K/uL (0.11-0.59) Eosinophils # (Auto) 0.05 K/uL (0-0.5) Basophils # (Auto) 0.02 K/uL (0-0.2) RDW Standard Deviation 40.6 fL (36.4-46.3) RDW Coefficient of Variation 12.6 % (11.5-14.5) Immature Granulocyte % (Auto) 0.2 % Immature Granulocyte # (Auto) 0.01 K/uL (0.00-0.02) Magnesium Level 2.1 mg/dl (1.8-2.4) Direct Bilirubin 0.1 mg/dl (0-0.2) Thyroid Stimulating Hormone (TSH) 0.440 uIu/ml (0.300-4.500) Urine Color YELLOW Urine Appearance CLEAR (CLEAR) Urine pH 5.0 (4.5-7.5) Urine Specific [place] 1.013 (1.000-1.030) Urine Protein NEG (NEG) Urine Glucose (UA) NEG (NEG) Urine Ketones TRACE (NEG) Urine Occult Blood NEG (NEG) Urine Nitrite NEG (NEG) Urine Bilirubin NEG (NEG) Urine Urobilinogen NEG (NEG) Urine Leukocyte Esterase NEG (NEG) Laboratory results per my review. Medications Administered Medications (Trade) Dose Ordered Sig/Ignacio Route Start Time Stop Time Status Last Admin Dose Admin Sodium Chloride 1,000 ml @ 999 mls/hr Q1H1M STAT IV 03/30/17 19:08 03/30/17 20:08 DC 03/30/17 19:31 999 MLS/HR Sodium Chloride 1,000 ml @ 200 mls/hr Q5H STAT IV 03/30/17 20:41 03/30/17 22:29 DC 03/30/17 21:18 200 MLS/HR ED Course 1899: Past medical records reviewed. The patient was evaluated in room B05. A complete history and physical examination was performed. 1907: Sodium Chloride 1000 ml @ 999 mls/hr IV 2040: Sodium Chloride 1000 ml @ 200 mls/hr IV 2030: Upon reevaluation, the patient is resting comfortably. I discussed laboratory and radiographic results with him. He verbalized agreement of the treatment plan. The patient will be evaluated for further management and care. 2044: [facility] the [facility] Decision Medication Reconciliation: I attest that I have personally reviewed the patient' s current medication list. Blood Pressure Screening: Patient was found to have normal blood pressure on screening and does not require follow-up. Differential diagnosis includes but is not limited to tendon disruption, muscular strain, bony fracture, DVT, anxiety, rhabdomyolysis. This patient was evaluated and appeared to be in no significant distress. IV access was obtained and laboratory work was drawn. The patient was placed on the hourly caregiver. He was hydrated with normal saline solution. Physical examination is fairly unrevealing. Ultrasound right upper extremity is negative for DVT. X-ray of the elbow reveals some mild soft tissue swelling with no evidence of bony fracture. On reevaluation, the patient is very anxious. His laboratory work was reviewed. The total CK is elevated at 1260. Creatinine is slightly elevated at 1.2. It is unclear why the patient would have an elevated total CK from earlier today when he was hydrated with normal saline overnight. He denies any supplements, excessive exercise or medications. He denies any herbal teas. This time I feel is in the patient's best interest to be evaluated by the hospitalist service for further management. He has declined any medication in the emergency department. He is aware of the plan for hospitalization and agrees. Consults Time Called: 2039 Consulting Physician: Dr. Palma, from [facility]ist Service Returned Call: [phone] I discussed the patient's case with Dr. Palma, from [facility]. Impression Primary Impression: Rhabdomyolysis Additional Impression: Right elbow tendonitis Scribe Attestation The scribe's documentation has been prepared under my direction and personally reviewed by me in its entirety. I confirm that the note above accurately reflects all work, treatment, procedures, and medical decision making performed by me. Departure Information Dispostion Being Evaluated By Hospitalist Prescriptions No Active Prescriptions or Reported Meds Referrals No Doctor, Assigned (PCP) Patient Instructions My [facility] Problem Qualifiers
[2017-03-30 20:05] LABS: BASO % 0.4 %; BASO ABS # 0.02 K/uL (0-0.2); COMPLETE YES; EOS % 1.1 %; HEMATOCRIT 45.1 % (42-52); IG% 0.2 %; LYMPH % 16.2 %; LYMPH ABS # 0.74 K/uL (1.2-3.4); MEAN CELL VOLUME 87.7 fL (80-100); MEAN CORPUSCULAR HEMOGLOBIN 29.4 pg (25-34); MEAN CORPUSCULAR HGB CONC 33.5 g/dl (32-36); MEAN PLATELET VOLUME 9.1 fL (7.4-10.4); MONO % 5.9 %; NEUT % 76.2 %; PLATELET COUNT 303 K/uL (130-400); RED BLOOD COUNT 5.14 M/uL (4.7-6.1); WHITE BLOOD COUNT 4.57 K/uL (4.8-10.8)
[2017-03-30 20:10] LABS: BUN/CREATININE RATIO 8.9 (10-20); CALCIUM 9.2 mg/dl (8.5-10.1); CREATININE 1.2 mg/dl (0.60-1.40); MAGNESIUM 2.1 mg/dl (1.8-2.4); POTASSIUM 3.5 mmol/L (3.5-5.1)
--- NOTE | 2017-03-30 20:17 | DIAGNOSTIC IMAGING REPORT ---
ULTRASOUND RIGHT UPPER EXTREMITY VENOUS CLINICAL HISTORY: Right arm pain. COMPARISON STUDY: No priors.. TECHNIQUE: Real-time, grayscale, and color Doppler sonography of the deep veins of the right upper extremity is performed. Compression and augmentation were utilized. FINDINGS: There is no sonographic evidence of deep venous thrombosis identified in the right upper extremity. The right internal jugular, axillary, and brachial veins are patent and normally compressible. Normal venous waveforms and augmentation are seen within the right subclavian vein. The cephalic and basilic veins are clear. The visualized radial and ulnar veins are patent. IMPRESSION: There is no sonographic evidence of deep venous thrombosis identified in the right upper extremity. Electronically signed by: Mandeep Braun M.D. 03/30/2017 8:16 PM Dictated Date/Time: 03/30/2017 8:15 PM
[2017-03-30 20:24] LABS: THYROID STIMULATING HORMONE 0.44 uIu/ml (0.300-4.500)
--- NOTE | 2017-03-30 20:29 | DIAGNOSTIC IMAGING REPORT ---
RIGHT ELBOW 3 VIEWS CLINICAL HISTORY: Right elbow injury. No reported history of trauma. FINDINGS: 3 views of the right elbow are obtained. No prior studies are available for comparison at the time of dictation. The skeletal structures are well mineralized. No fracture is seen. The joint spaces of the elbow are well-maintained. No joint effusion is identified. Dorsal soft tissue edema is noted. IMPRESSION: Mild dorsal soft tissue swelling with no acute bony abnormality. Electronically signed by: Mandeep Braun M.D. 03/30/2017 8:28 PM Dictated Date/Time: 03/30/2017 8:27 PM
[2017-03-30 21:00] VITALS: BP 117/61; PULSE 109; TEMP 36.9; Ht 170.2 cm; Wt 73.6 kg
[2017-03-30 21:09] LABS: URINE APPEARANCE CLEAR (CLEAR); URINE BILIRUBIN NEG (NEG); URINE COLOR YELLOW; URINE NITRITE NEG (NEG); URINE SPECIFIC GRAVITY 1.013 (1.000-1.030); UROBILINOGEN NEG (NEG); ZZUR CULT IF INDIC CLEAN CATCH NO
[2017-03-30 21:14] LABS: MANUAL MICROSCOPIC REQUIRED? NO; REVIEW REQ? NO
--- NOTE | 2017-03-30 21:27 | History and Physical ---
History & Physical Date & Time of Service: Mar 30, 2017 at 21:21 Chief Complaint: Cipro Related - Rt Arm Pain,Kidney Pain Primary Care Physician: No Doctor, Assigned History of Present Illness I was asked to see this patient by Dr. Rock who felt the patient had elevation of his CK from discharge this morning. After evaluating the patient it's clear that although the CK is elevated, almost double, his biggest issue seems to revolve around anxiety and possible panic disorder. After speaking to the patient, it was clear that he would return this evening without any symptom recurrence. He states he felt fine all day after discharge , ate a meal, and then was reviewing the side effects of Cipro when he began to feel anxious and jittery all over and generally ill. His aunt and uncle are visiting from [place] and encouraged him to return to the hospital. CT was repeated and found to be 1200, since this was about the emergency department recommended readmission. It is unclear to me if the ciprofloxacin was prior to his last visit where subsequent to this discharge. The patient also relates that he did run last evening prior to his admission. Patient is taking muscle supplements but none for last 5 days, the patient exhibits anxiety frequently drinking and got water and then belching and being concerned about gas. He states he needs to drink at least 1 gallon of water a day, and overall seems unsettled. He'll be observed for hydration and correcting of his CK, he is going to move out of the area in May, the recommendations for follow-up would be with the PCP or summer to camp head counselor him for anxiety Past Medical/Surgical History Medical Problems: (1) Pyelonephritis Status: Resolved (2) Urinary tract infection Status: Resolved Family History Patient reports no known family medical history. Social History Smoking Status: Never Smoker Drug Use: none Marital Status: single Housing status: lives alone Occupational Status: [employer] student Multi-Drug Resistant Organisms History of MDRO: No Allergies Coded Allergies: Penicillins (Unverified Allergy, Unknown, childhood, 03/30/17) Home Medications No Active Prescriptions or Reported Meds Review of Systems ROS: well nourished well developed No double vision blurry vision No problems with speech or swallowing No palpitations, chest pain or pressure No Wheezing or breathing issues No abdominal pain nausea vomiting diarrhea changes in appetite or weight, increased belching and gas No burning urine urine frequency or changes in color No focal joint pain or muscle pain No skin rashes /oral lesions No unusual bruising or bleeding No focused back pain or numbness or loss of strength, unusual skin sensations No changes in memory or confusion pressure speech and exacerbation of anxiety Physical Exam Vital Signs Date Time Temp Pulse Resp B/P (MAP) Pulse Ox O2 Delivery O2 Flow Rate FiO2 03/30/17 18:50 36.9 123 18 128/84 95 Room Air General Appearance: WD/WN, + mild distress Head: normocephalic, atraumatic Eyes: PERRL, EOMI Neck: supple, no JVD Respiratory/Chest: chest non-tender, lungs clear, normal breath sounds Cardiovascular: regular rate, rhythm, no murmur Abdomen/GI: normal bowel sounds, non tender, soft Back: normal inspection, no CVA tenderness, no muscle spasm, normal range of motion Extremities/Musculoskelatal: normal inspection, no calf tenderness, normal capillary refill, no pedal edema, normal range of motion Neurologic/Psych: no motor/sensory deficits, alert, oriented x 3 Skin: normal color, warm/dry, no rash Diagnostics Laboratory Results Results Past 24 Hours Test 03/30/17 19:29 03/30/17 20:55 Range/Units White Blood Count 4.57 4.8-10.8 K/uL Red Blood Count 5.14 4.7-6.1 M/uL Hemoglobin 15.1 14.0-18.0 g/dL Hematocrit 45.1 42-52 % Mean Corpuscular Volume 87.7 80-100 fL Mean Corpuscular Hemoglobin 29.4 25-34 pg Mean Corpuscular Hemoglobin Concent 33.5 32-36 g/dl Platelet Count 303 130-400 K/uL Mean Platelet Volume 9.1 7.4-10.4 fL Neutrophils (%) (Auto) 76.2 % Lymphocytes (%) (Auto) 16.2 % Monocytes (%) (Auto) 5.9 % Eosinophils (%) (Auto) 1.1 % Basophils (%) (Auto) 0.4 % Neutrophils # (Auto) 3.48 1.4-6.5 K/uL Lymphocytes # (Auto) 0.74 1.2-3.4 K/uL Monocytes # (Auto) 0.27 0.11-0.59 K/uL Eosinophils # (Auto) 0.05 0-0.5 K/uL Basophils # (Auto) 0.02 0-0.2 K/uL RDW Standard Deviation 40.6 36.4-46.3 fL RDW Coefficient of Variation 12.6 11.5-14.5 % Immature Granulocyte % (Auto) 0.2 % Immature Granulocyte # (Auto) 0.01 0.00-0.02 K/uL Sodium Level 141 136-145 mmol/L Potassium Level 3.5 3.5-5.1 mmol/L Chloride Level 107 98-107 mmol/L Carbon Dioxide Level 27 21-32 mmol/L Anion Gap 7.0 3-11 mmol/L Blood Urea Nitrogen 11 7-18 mg/dl Creatinine 1.20 0.60-1.40 mg/dl Est Creatinine Clear Calc Drug Dose 88.0 ml/min Estimated GFR () 96.8 Estimated GFR (Non- 83.5 BUN/Creatinine Ratio 8.9 10-20 Random Glucose 123 70-99 mg/dl Calcium Level 9.2 8.5-10.1 mg/dl Magnesium Level 2.1 1.8-2.4 mg/dl Total Bilirubin 0.4 0.2-1 mg/dl Direct Bilirubin 0.1 0-0.2 mg/dl Aspartate Amino Transf (AST/SGOT) 49 15-37 U/L Alanine Aminotransferase (ALT/SGPT) 59 12-78 U/L Alkaline Phosphatase 95 45-117 U/L Total Creatine Kinase 1266 39-308 U/L Total Protein 7.0 6.4-8.2 gm/dl Albumin 4.4 3.4-5.0 gm/dl Thyroid Stimulating Hormone (TSH) 0.440 0.300-4.500 uIu/ml Urine Color YELLOW Urine Appearance CLEAR CLEAR Urine pH 5.0 4.5-7.5 Urine Specific [place] 1.013 1.000-1.030 Urine Protein NEG NEG Urine Glucose (UA) NEG NEG Urine Ketones TRACE NEG Urine Occult Blood NEG NEG Urine Nitrite NEG NEG Urine Bilirubin NEG NEG Urine Urobilinogen NEG NEG Urine Leukocyte Esterase NEG NEG Impression Assessment and Plan 27-year-old male with rhabdomyolysis and likely anxiety Patient evaluated aggressively repeat CK in the morning with chemistry panel Ativan when necessary Dvt prevention early ambulation VTE Prophylaxis VTE Risk Assessment Done? Y/N: Yes Risk Level: Low
[2017-03-30] MEDS ORDERED: LORAZEPAM 0.5 MG TAB PO PRN (21:30)
[2017-03-30] MEDS ORDERED: ACETAMINOPHEN 325 MG TAB PO PRN (21:30)
[2017-03-30] MEDS ORDERED: ALUMINUM/MAGNESIUM/SIMETH (MAALOX MAX) 30 ML UDC PO PRN (21:30)
--- NOTE | 2017-03-30 21:42 | DIAGNOSTIC IMAGING REPORT ---
ULTRASOUND TESTES AND SCROTUM CLINICAL HISTORY: Left testicular pain and swelling. COMPARISON STUDY: No priors. TECHNIQUE: Real-time, grayscale, and color Doppler sonography of the testes and scrotum is performed. Images are reviewed in the transverse and longitudinal planes. FINDINGS: The testes are normal in size and homogeneous in echotexture. The right testis measures 4.4 x 2.4 x 2.9 cm and the left testis measures 4.2 x 2.4 x 3.1 cm. No intratesticular mass is seen. Testicular blood flow is normal and symmetric. Normal Doppler waveforms are identified in both testes. The epididymal heads are normal in appearance. The right epididymal head measures 0.9 cm in length and the left epididymal head measures 0.9 cm in length. No varicocele or hydrocele is seen. IMPRESSION: Unremarkable sonographic assessment of the testes and scrotum. Electronically signed by: Mandeep Braun M.D. 03/30/2017 9:41 PM Dictated Date/Time: 03/30/2017 9:40 PM
[2017-03-30 21:51] VITALS: O2SAT 95
[2017-03-30] MEDS: SODIUM CHLORIDE 0.9% 1000ML 1,000 ML IV SCH ×2 (22:45→23:57)
[2017-03-30] MEDS ORDERED: NURSING VERBAL MED ORDER ONE (23:15)
[2017-03-30 23:45] VITALS: BP 116/70; PULSE 105; TEMP 36.9; O2SAT 97
[2017-03-31] MEDS: SODIUM CHLORIDE 0.9% 1000ML 1,000 ML IV SCH ×4 (00:07→08:56)
[2017-03-31] MEDS ORDERED: IV FLUIDS COMPLETED PRN (00:15)
[2017-03-31 06:50] LABS: BUN/CREATININE RATIO 7.8 (10-20); CALCIUM 8.7 mg/dl (8.5-10.1); POTASSIUM 3.6 mmol/L (3.5-5.1)
[2017-03-31 07:24] VITALS: BP 139/74; PULSE 82; TEMP 37.2; O2SAT 97
[2017-03-31 09:30] LABS: BENZODIAZEPINE, URINE NEG (NEG); COCAINE,URINE NEG (NEG); PHENCYCLIDINE, URINE NEG (NEG)
[2017-03-31] MEDS ORDERED: SIMETHICONE 80 MG CHEW PO PRN (11:00)
--- NOTE | 2017-03-31 11:42 | DIAGNOSTIC IMAGING REPORT ---
KUB CLINICAL HISTORY: Bloating. Gas. COMPARISON STUDY: CT of the abdomen and pelvis March 29, 2017 and renal ultrasound March 30, 2017. FINDINGS: The bowel gas pattern is normal. No urinary calculi are identified. IMPRESSION: 1. No evidence for a bowel obstruction. 2. No urinary calculi. Electronically signed by: Shantanu Varma M.D. 03/31/2017 11:40 AM Dictated Date/Time: 03/31/2017 11:39 AM
--- NOTE | 2017-03-31 12:54 | Psychiatric Consultation ---
Consultation Date of Consultation Mar 31, 2017. Identifying Data Babatunde Roe is a 27-year-old male who currently lives in a college, has no psychiatric history, and is admitted to the hospitalist service with rhabdomyolysis. Psychiatry was consulted for anxiety. Chief Complaint "I told them I was anxiety". History of Present Illness The patient had 2 admissions to the hospitalist service yesterday, initially presenting the evening of March 29 with flank pain. He had just been seen at urgent care the day prior with urinary symptoms, and was started on Cipro for a UTI (without giving a urine sample for urinalysis) disease. He then went for a run, and developed worsening flank pain. He also reported heart palpitations and shakiness since starting the Cipro. He also reported testicular pain, and admitted to taking several supplements and running excessively. He was hyperglycemic and hypokalemic. He was seen by nephrology, who did not believe further workup was required, as his acute kidney injury resolved with IV fluids. He was instructed to avoid NSAIDs, workout supplements, and volume depletion, and was discharged home. He was discharged around noon yesterday, and then re-presented to the emergency room last evening, with a chief complaint of right arm weakness and "my muscles or dissolving." He reported tingling in his right hand, and felt all of his symptoms were due to the Cipro started by Dr. Jane. He said he had stopped the Cipro after 3 doses, and had not taken any further antibiotics. His exam was normal other than minimal tenderness to palpation over the proximal right arm. Right elbow x-ray was notable for mild dorsal soft tissue swelling. Right upper extremity venous ultrasound was normal. White blood cell count was low at 4.57, and creatinine was elevated at 1266. Glucose was elevated, and AST was increased at 49. Urinalysis showed trace ketones, and tox screen was negative. He's had blood cultures 2 with no growth to date, and a urine culture is pending. He has also had a KUB, testicular x-ray, renal ultrasound, and abdominal and pelvic CT over the course of his last 2 days of treatment. Per nursing notes, he has endorsed numerous physical concerns and complaints, including that he has not had the urge to urinate as much as he thinks he should have, his urine is yellow rather than clear, discomfort in his back, feeling that his heart is "running fast," his "tendons are taking down," and pain and numbness from his right knee to his ankle and his right arm. At times he gives inconsistent reports, telling staff that he is hungry, and then refusing all food choices and stating he is not hungry. He also requested that the nurses change the rate of his IV fluids. He told nursing staff that he wants a GI neurology consult as he believes the problem is originating in his gut, and that he wants to stay in the hospital longer. On my assessment, the patient states that he has never had any problems with anxiety until 2 days ago. He states that 3 days ago, 03/28/2017, he went to urgent care for urinary complaints, was diagnosed with UTI, and prescribed Cipro. The following day, March 29, he took 3 doses of Cipro. After the first pill, he felt more tired and weak, after the second pill, he had 3 nightmares which is unusual for him, and after the third pill, he noticed a right hand tremor. Later that day he went for a run, and afterwards had racing heart and shakiness in his hands and felt anxious. He does not believe that he was dehydrated, stating that he drank a lot of water. Yesterday, he came to the emergency room because he was feeling more anxious with racing thoughts, worries that he was going to , and felt his heart beating rapidly. This lasted for about 15 minutes. He states it helps when he is feeling this way to have others to talk to and to not be alone. He denies anxiety symptoms so far today, and states that he is convinced that all of these symptoms are due to the Cipro, because "I looked it up and read about it, lots of people suffer from the Cipro." Although he currently denies anxiety symptoms, he feels that he needs to sit near the air conditioning vents in his room so that he can feel the cool air as this helps him to feel calmer, and when he feels hot, he worries the anxiety will come back. He denies significant worrying at baseline, denies any history of panic attacks, and denies symptoms of depression, renato, OCD, PTSD, and psychosis. I believe he has a mental illness or that he needs treatment. He has declined when necessary Ativan when offered. He does give some conflicting reports, for example stating that he is convinced his anxiety is due to the Cipro, which she stopped 2 days ago, but then saying that he is not sure he will be able to move to [facility] in one month as he had planned, because it is hot there and the heat may trigger anxiety. Past Psychiatric History Current OP Treatment: no current treatment Prior OP Treatment: no prior treatment Prior Psych Hospitalizations: none Access to a Gun: No Suicide Attempts: No Past Medication Trials None Past Medical/Surgical History History of Concussion/Seizure: No (1) Right elbow tendonitis (2) Rhabdomyolysis Allergies Allergies: Coded Allergies: Penicillins (Unverified Allergy, Unknown, childhood, 03/30/17) Home Medications No Active Prescriptions or Reported Meds Family History Patient reports no known family medical history. History of Suicide: No History of Substance Abuse: No Psychiatric History: No Alcohol Use Alcohol Use In Past 12 Months: No Smoking Use Smoking Status: Never Smoker Substance History Denies Personal History [facility] College Childhood: [employer] Education: graduated college ([employer] August 2015) Work History: Unable to work due to international student status Relationship History: never Children: none Spiritual Affiliation: denies Legal History: none Psychological Trauma History: Other (denies) Review of Systems Reviewed 10 systems and all are negative except as stated above. Examination Vital Signs Vital Signs Past 12 Hours Date Time Temp Pulse Resp B/P (MAP) Pulse Ox O2 Delivery O2 Flow Rate FiO2 03/31/17 10:00 Room Air 03/31/17 08:00 Room Air 03/31/17 07:24 37.2 82 18 139/74 (95) 97 Room Air Laboratory Results Last 24 Hours Test 03/30/17 19:29 03/30/17 20:55 03/31/17 05:50 03/31/17 07:11 White Blood Count 4.57 K/uL Red Blood Count 5.14 M/uL Hemoglobin 15.1 g/dL Hematocrit 45.1 % Mean Corpuscular Volume 87.7 fL Mean Corpuscular Hemoglobin 29.4 pg Mean Corpuscular Hemoglobin Concent 33.5 g/dl Platelet Count 303 K/uL Mean Platelet Volume 9.1 fL Neutrophils (%) (Auto) 76.2 % Lymphocytes (%) (Auto) 16.2 % Monocytes (%) (Auto) 5.9 % Eosinophils (%) (Auto) 1.1 % Basophils (%) (Auto) 0.4 % Neutrophils # (Auto) 3.48 K/uL Lymphocytes # (Auto) 0.74 K/uL Monocytes # (Auto) 0.27 K/uL Eosinophils # (Auto) 0.05 K/uL Basophils # (Auto) 0.02 K/uL RDW Standard Deviation 40.6 fL RDW Coefficient of Variation 12.6 % Immature Granulocyte % (Auto) 0.2 % Immature Granulocyte # (Auto) 0.01 K/uL Sodium Level 141 mmol/L 145 mmol/L Potassium Level 3.5 mmol/L 3.6 mmol/L Chloride Level 107 mmol/L 112 mmol/L Carbon Dioxide Level 27 mmol/L 28 mmol/L Anion Gap 7.0 mmol/L 5.0 mmol/L Blood Urea Nitrogen 11 mg/dl 8 mg/dl Creatinine 1.20 mg/dl 1.00 mg/dl Est Creatinine Clear Calc Drug Dose 88.0 ml/min 105.6 ml/min Estimated GFR () 96.8 120.7 Estimated GFR (Non- 83.5 104.1 BUN/Creatinine Ratio 8.9 7.8 Random Glucose 123 mg/dl 87 mg/dl Calcium Level 9.2 mg/dl 8.7 mg/dl Magnesium Level 2.1 mg/dl Total Bilirubin 0.4 mg/dl Direct Bilirubin 0.1 mg/dl Aspartate Amino Transf (AST/SGOT) 49 U/L Alanine Aminotransferase (ALT/SGPT) 59 U/L Alkaline Phosphatase 95 U/L Total Creatine Kinase 1266 U/L 747 U/L Total Protein 7.0 gm/dl Albumin 4.4 gm/dl Thyroid Stimulating Hormone (TSH) 0.440 uIu/ml Urine Color YELLOW Urine Appearance CLEAR Urine pH 5.0 Urine Specific [place] 1.013 Urine Protein NEG Urine Glucose (UA) NEG Urine Ketones TRACE Urine Occult Blood NEG Urine Nitrite NEG Urine Bilirubin NEG Urine Urobilinogen NEG Urine Leukocyte Esterase NEG Urine Opiates Screen NEG Urine Methadone, Qualitative NEG Urine Barbiturates NEG Urine Phencyclidine (PCP) Level NEG Ur Amphetamine/Methamphetamine NEG MDMA (Ecstasy) Screen NEG Urine Benzodiazepines Screen NEG Urine Cocaine Metabolite NEG Urine Marijuana (THC) NEG Test 03/31/17 10:56 03/31/17 11:21 Creatine Kinase MB Ratio Creatine Kinase MB 2.2 ng/ml Mental Examination During interview pt is: alert and oriented, cooperative Appearance: appropriately dressed, appropriately groomed Eye contact is: good Motor behavior is: steady gait & station, no abnormal motor movements Speech: normal in rate, rhythm & volume Affect: other (mildly anxious) Mood is: other ("good") Thought process: goal directed Thought content: reality based without delusions Suicidal thought are: denied Homicidal thoughts are: denied Hallucinations: denies auditory, denies visual Cognition: memory grossly intact, attention grossly intact, language grossly intact Intelligence estimated to be: average Insight: fair Judgement: fair Impression / Recommendations Impression 27-year-old single Hebrew male with no psychiatric history who has had 2 admissions in 24 hours for kidney dysfunction and rhabdomyolysis. He denies having any anxiety symptoms prior to starting Cipro 2 days ago, and is attributing all of his symptoms to that medication. I think it likely that his workout supplements and exercise regimen/rhabdomyolysis contributed to his subjective feelings of anxiety. He does not meet any criteria for a primary anxiety disorder, but does have an odd affect and is somewhat psychosomatic, possibly overinterpreting some of his physical symptoms. No psychiatric treatment is indicated. We did discuss that if his symptoms are due to supplements or his medical issues, they will likely resolve within the next couple of days. We also discussed that if anxiety symptoms continue or worsen over the next few weeks, he should seek mental health treatment. Would encourage him to follow up with a PCP, and reinforced recommendations to avoid workout supplements and to stay hydrated when exercising.
[2017-03-31 15:02] LABS: BUN/CREATININE RATIO 6.3 (10-20); CALCIUM 9.5 mg/dl (8.5-10.1); CREATININE 1.1 mg/dl (0.60-1.40); POTASSIUM 3.9 mmol/L (3.5-5.1)
[2017-03-31 15:04] VITALS: BP 123/79; PULSE 90; TEMP 37.2; O2SAT 97
[2017-03-31 15:05] LABS: ALB/GLOB RATIO 1.5 (0.9-2)
--- NOTE | 2017-03-31 15:34 | Discharge Instructions ---
Discharge Instructions Date of Service Mar 31, 2017. Admission Reason for Admission: Rhabdomyolysis Discharge Discharge Diagnosis / Problem: Elevated creatine, arthralgia secondary to Cipro use Discharge Goals Goal(s): Decrease discomfort, Specific goals (get rest, drink fluids) Activity Recommendations Activity Limitations: resume your previous activity Lifting Limitations: none Exercise/Sports Limitations: gradually increase as tolerated (rest for the next several days) May Resume Sexual Activity: when tolerated Shower/Bathe: no limitations Driving or Machine Use: no limitations . Instructions / Follow-Up Instructions / Follow-Up Medications: none In summary, your symptoms could be attributed to Cipro. There is no other medical explanation for your symptoms. Your kidney function is normal. Your electrolytes and cell counts are normal. Your sedimentation rate and C-reactive protein are normal thus ruling out any type of inflammatory state. Urinalysis is normal and toxicology screen negative. Creatine kinase continues to trend down even off of IV fluids. Likely the first time you were admitted the CK was on the rise from the insult from Cipro, and now it is trending back down and will continue to improve over the next several days. We will check this on 04/09 as outpatient. All of the imaging that has been done is normal. Get plenty of rest, avoid strenuous exercise for the next week and then you can resume after we check labs. Current Hospital Diet Patient's current hospital diet: Regular Diet Discharge Diet Recommended Diet: Regular Diet Pending Studies Studies pending at discharge: no Laboratory Results Hemoglobin A1c Test 03/30/17 04:58 Range/Units Estimated Average Glucose 108 mg/dl Hemoglobin A1c 5.4 4.5-5.6 % Medical Emergencies . Who to Call and When: Medical Emergencies: If at any time you feel your situation is an emergency, please call 911 immediately. . Non-Emergent Contact Non-Emergency issues call your: Primary Care Provider . . "Provider Documentation" section prepared by Vinicio Pimentel. . VTE Core Measure Inpt VTE Proph given/why not?: Treatment not indicated [place] Drug Monitoring Program Search Results: no issues identified
[2017-03-31 15:42] VITALS: BP 123/79; PULSE 90; TEMP 37.2; O2SAT 97
--- NOTE | 2017-04-01 07:47 | Discharge Summary ---
Discharge Summary Date of Service Mar 31, 2017. Discharge Summary Admission Date: Mar 30, 2017 at 21:21 Discharge Date: Mar 31, 2017 Discharge Disposition: Home Principal Diagnosis: Elevated creatine kinase Problems/Secondary Diagnoses: Adverse effects from Ciprofloxacin Arthralgia Anxiety Procedures: none Consultations: Psychiatry Medication Reconciliation Medication Profile: No Active Prescriptions or Reported Meds Discharge Exam Patient returned to the hospital less than 24 hours after his first discharge when he was admitted for DWAINE with Cr of 1.6 and mildly elevated creatine kinase. Clearly the patient looked up information about Cipro on the internet and he read that it can cause life threatening and irreversible side effects with tendon breakdown, nerve damage, kidney damage, muscle breakdown. The more he read, the more he convinced himself that he was experiencing a "syndrome" of symptoms as he described it. He said that all of his joints were "weak" and they were popping. He said his muscles were also weak. He was fixated on bloating in his stomach, kept saying that the gas in his stomach was a sign of toxins from the Cipro and that the toxins would get in his blood stream. At one point he exhibited very paranoid behavior and asked me to look at his Cipro tablets he got filled and asked if they were truly Cipro and not another toxin. His aunt and uncle were also with him and they were supporting this belief that in some way the patient was deteriorating and they "did not want him to ." I calmly explained multiple times that there was no evidence of anything serious going on with his body. He initially presented with DWAINE with a Cr of 1.6 and CK in the 600's. Attributed to Cipro use. He fully recovered in 12 hours with IV fluids. His CK did go up slightly on first admission but at that time he did not c/o any muscle pain, joint pain, bloating, muscle twitching. He felt well in the morning and discussed that his kidney injury was likely due to Cipro and fortunately he had stopped taking 36 hours prior and that the Cipro should be nearly out of his system. It was only after he left the hospital and went home and he admitted that he read some very scary things on the internet about Cipro. He returned to the ED focused on having all of these systems. His CK was indeed higher at 1000 and that caused him to think that he was getting much, much worse. I focused on trying to re-assure him that despite what he was telling me, all my evidence on testing showed that he was okay. KUB showed no obstruction or kidney stones. CK trended down appropriately even off of IV fluids. Cr and electrolytes and CBC was stable. I checked a CRP and ESR and they were both normal thus ruling out an inflammatory state. X-ray of his elbow was normal as was a right UE ultrasound. Psychiatry evaluated him and felt that he was focused on the idea of Cipro causing him harm, leading to anxiety and paranoia. In the afternoon he felt better even after holding IV fluids for several hours. His bloating and gas were gone. He had moved bowels and passed flatus. Urinating well, clear urine. He said that his joints were even starting to feel better. We decided on a plan for discharge, he would return to hospital on 04/09 and have repeat blood work and I would call him with the results since he does not have a PCP and he is moving to [place] in a month. He and his family agreed with this plan and he was discharged home. Review of Systems: Constitutional: + weakness, No fever, No chills, No sweats, No weight loss, No fatigue, No problem reported Eyes: No worsening of vision, No eye pain, No redness, No discharge, No diplopia, No problem reported ENT: No hearing loss, No unusual epistaxis, No nasal symptoms, No sore throat, No tinnitus, No dental problems, No trouble swallowing, No problem reported Respiratory: No cough, No sputum, No wheezing, No shortness of breath, No dyspnea on exertion, No dyspnea at rest, No hemoptysis, No problem reported Cardiovascular: No chest pain, No orthopnea, No PND, No edema, No claudication, No palpitations, No problem reported Abdomen: + problem reported (bloating), No pain, No nausea, No vomiting, No diarrhea, No constipation, No GI bleeding Musculoskeletal: + joint pain (diffuse), + muscle pain, No swelling, No calf pain Genitourinary - Male: No hematuria, No dysuria, No urinary frequency, No urinary urgency Neurologic: + problem reported (muslce twitching, left hand, face), No memory loss, No paralysis, No weakness, No numbness/tingling, No vertigo, No balance problems Psychiatric: + anxiety, No depression symptoms, No anhedonism, No insomnia, No substance abuse, No problem reported Endocrine: No fatigue, No excessive thirst, No excessive urination, No problem reported Hematologic / Lymphatic: No abnormal bleeding/bruising, No clotting problems , No swollen lymph nodes, No night sweats, No problem reported Integumentary: No rash, No itch, No new/changing skin lesions, No color change, No bleeding, No problem reported Physical Exam: General Appearance: WD/WN, no apparent distress Eyes: normal inspection, EOMI, sclerae normal ENT: normal ENT inspection, hearing grossly normal, pharynx normal Neck: supple, no adenopathy, no JVD, trachea midline Respiratory/Chest: chest non-tender, lungs clear, normal breath sounds, no respiratory distress, no accessory muscle use Cardiovascular: regular rate, rhythm, no edema, no gallop, no JVD, no murmur , normal peripheral pulses Abdomen / GI: normal bowel sounds, non tender, soft, no organomegaly Extremities: normal inspection, no calf tenderness, normal capillary refill , no pedal edema, normal range of motion, non-tender, pelvis stable, + pertinent finding (close examination of knees, ankles, wrists, elbows and shoulders, no swelling, no pain on palpation, full range of motion, no clicking or popping, no crepitus) Neurologic/Psychiatric: 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, no motor/sensory deficits (5/5 strength in extremities despite describing himself as weak), alert, normal reflexes, oriented x 3, + pertinent finding (very anxious mood, almost paranoid) Skin: normal color, warm/dry, no rash Lymphatic: no adenopathy Hospital Course 27 yo male from [place], presenting with elevated CK and multiple complaints including joint pain, muscle pain and weakness, muscle twitching, bloating - Elevated CK: no real evidence of rhabdomyolysis, CK did peak at 1266 but quickly trended down with IV fluids, down to 600 at time of discharge no severe muscle pain, no weakness on exam Cr normal, no heme in urine likely caused by Cipro instructed to get rest, drink fluids, stop taking multiple muscle supplements , no exercise for a week - Anxiety and paranoia surrounding Cipro use patient admits that he read about detrimental side effects of Cipro and then started to sense that he was experiencing multiple things symptoms included joint "weakness" and pain and joints popping and cracking mild muscle twitching of the hand and occasionally the face bloating of his stomach that he attributed the Cipro killing good bacterial and now he had toxins in body re-assured the patient and his family multiple times as did other providers, that he was okay if he was in fact experiencing some side effects from Cipro, he had already done the most important thing, he stopped Cipro 48 hours prior instructed him to get rest and give his symptoms time to resolve also, he should list Cipro and other quinolones as having severe side effects so he does not take them in the future - Recent DWAINE: Cr stable on three separate blood draws, electrolytes normal Total Time Spent: Greater than 30 minutes This includes examination of the patient, discharge planning, medication reconciliation, and communication with other providers. Discharge Instructions Please refer to the electronic Patient Visit Report (Discharge Instructions) for additional information. Follow-Up lab work including BMP, mag, phos, UA and CK level on 04/09
== END 2017-03-31 16:41 | disposition home or self-care (01) | DRG 948 ==
LOC: C.EDB 18:46 → C.MED 21:21 → ENRESERV 21:37
PROVIDERS: ADMIT Internal Medicine; ATTEND Internal Medicine
DX: R79.89 Other specified abnormal findings of blood chemistry (principal); F41.9 Anxiety disorder, unspecified; F22 Delusional disorders; T36.8X5A Adverse effect of other systemic antibiotics, initial encounter

== ENCOUNTER 2017-03-31 22:33 | Emergency (ER) | payer OTHER ==
[~2017-03-31] VITALS: Ht 170.2 cm; Wt 71.9 kg
[2017-03-31 22:38] VITALS: TEMP 37; Ht 170.2 cm; Wt 71.9 kg
--- NOTE | 2017-03-31 23:29 | EMERGENCY ROOM VISIT NOTE ---
History Report prepared by Lynsey: Angelina Xiao Under the Supervision of: Dr. Madison Rock M.D. First contact with patient: 22:55 Chief Complaint: PAIN (GENERALIZED) Stated Complaint: PAIN ALL OVER BODY History of Present Illness The patient is a 27 year old male who presents to the Emergency Room with complaints of persistent right arm weakness starting 1200 today. The patient was seen in the ED yesterday for right arm weakness and discharged this morning. He states that all the symptoms he was experiencing have recurred since he was discharged. He believes he has "poison" in his body. He felt better after receiving IV fluids. He says that it "flushed the poison" out of his system. He reports numbness in his hands and feet, R flank pain, L leg weakness, and headache. He c/o B hand tingling and numbness as well as in the L leg. His symptoms worsen with eating. He had some potato chips, bread, and butter today. He believes he might have a kidney problem. Source of History: patient Onset: 1200 today Position: arm (right) Quality: other (weakness) Timing: other (persistent) Associated Symptoms: + headache, + weakness, + numbness Note: Pt reports flank pain. Review of Systems See HPI for pertinent positives & negatives. A total of 10 systems reviewed and were otherwise negative. Past Medical & Surgical Medical Problems: (1) Pyelonephritis (2) Urinary tract infection Family History Patient reports no known family medical history. Social History Smoking Status: Never Smoker Drug Use: none Marital Status: single Occupation Status: [employer] student Current/Historical Medications No Active Prescriptions or Reported Meds Allergies Coded Allergies: Penicillins (Unverified Allergy, Unknown, childhood, 03/31/17) Physical Exam Vital Signs Date Time Temp Pulse Resp B/P (MAP) Pulse Ox O2 Delivery O2 Flow Rate FiO2 03/31/17 23:46 82 20 145/79 99 Room Air 03/31/17 22:38 37.0 123 18 138/68 96 Room Air Physical Exam Vital signs reviewed. General: Well-appearing male, in no significant distress. HEENT: No scleral icterus, PERRLA, neck supple. Atraumatic. Cardiovascular: Slightly tachycardic rate and regular rhythm, no extra sounds. Pulmonary: Clear to auscultation bilaterally, normal work of breathing. Abdomen: Soft, nontender, nondistended, positive bowel sounds. Musculoskeletal: Atraumatic, no peripheral edema. Neurologic: Patient awake alert and oriented x 3, full strength in all 4 extremities. Cranial nerves 2 through 12 grossly intact. Skin: Warm, dry, no rash Medical Decision & Procedures ED Course 2256: Past medical records reviewed. The patient was evaluated in room B5. A complete history and physical examination was performed. 2319: I reevaluated the patient. I discussed findings with him. He verbalized agreement of the treatment plan. He was discharged home. Medical Decision Differential diagnosis: Etiologies such as mood disorder, infection, hypoglycemia, electrolyte abnormalities, cardiac sources, intracerebral event, toxicologic, neurologic, as well as others were entertained. Medication Reconciliation: I attest that I have personally reviewed the patient' s current medication list. Blood Pressure Screening: Patient was found to have a slightly elevated blood pressure due to circumstances. I do not believe that the patient requires hypertension monitoring. This patient was evaluated and appeared to be in no significant distress. The patient's physical exam is fairly unrevealing. He is mildly tachycardic initially. Patient's records were reviewed. He has had 2 hospitalizations in the last 48 hours. He was initially exercising and taking some sort of supplement which probably started the episode. The patient had an elevation of his total CK was again was hospitalized due to persistent rhabdomyolysis. The patient is had multiple rounds of blood work. He has many different complaints tonight which cannot be put together. I tried to explain to the patient that we have ruled out many causes of his symptoms. I do not think this is related to the Cipro. I do not think this is related to a bacterial infection or "poison." The patient was asked to find a primary care physician as he will need followed closely as an outpatient. He then began to complain about abdominal distention and gas. Stating he cannot eat. Patient was advised that he has had multiple studies to indicate that his presentation is not acute. He then asked if I can give him anything for his "heart." This time I do believe that the patient may be having a psychosomatic illness. I do not think he needs to be hospitalized today and I do not think he warrants further evaluation today. He was discharged to the care of family and will return to the ER for worsening of symptoms or any medical concerns. Impression Primary Impression: Psychosomatic pain Scribe Attestation The scribe's documentation has been prepared under my direction and personally reviewed by me in its entirety. I confirm that the note above accurately reflects all work, treatment, procedures, and medical decision making performed by me. Departure Information Dispostion Home / Self-Care Prescriptions No Active Prescriptions or Reported Meds Referrals No Doctor, Assigned (PCP) Forms HOME CARE DOCUMENTATION FORM, IMPORTANT VISIT INFORMATION, WORK / SCHOOL INSTRUCTIONS Patient Instructions [facility] Additional Instructions Diagnosis: Myalgias Tylenol 650 mg every 6 hours as needed for pain. Benadryl 50 mg every 6 hours as needed for myalgias. Drink 10 bottles or large glasses of water daily. Stop any supplements/muscle builders/herbs/medications. Follow up for lab work as directed upon discharge. Return to the ED for worsening of symptoms or any medical concerns.
[2017-03-31 23:46] VITALS: BP 145/79; PULSE 82; O2SAT 99
== END 2017-04-01 00:29 | disposition home or self-care (01) ==
LOC: C.EDB 22:33
DX: F45.9 Somatoform disorder, unspecified (principal); Z87.440 Personal history of urinary (tract) infections

== ENCOUNTER → 2017-04-09 | Outpatient (CLI) | payer OTHER ==
[~2017-04-09] MED LIST changes: -CIPR-255 PO; +HYDR1CAP85 PO; -IBUP-1459 PO
[2017-04-09 14:08] LABS: URINE APPEARANCE CLEAR (CLEAR); URINE BILIRUBIN NEG (NEG); URINE COLOR YELLOW; URINE NITRITE NEG (NEG); URINE PH 6.5 (4.5-7.5); URINE SPECIFIC GRAVITY 1.025 (1.000-1.030); UROBILINOGEN NEG (NEG); ZZUR CULT IF INDIC CLEAN CATCH NO
[2017-04-09 14:09] LABS: MANUAL MICROSCOPIC REQUIRED? NO; REVIEW REQ? NO
[2017-04-09 14:23] LABS: BLOOD UREA NITROGEN 19 mg/dl (7-18); BUN/CREATININE RATIO 14.4 (10-20); CALCIUM 10.1 mg/dl (8.5-10.1); CARBON DIOXIDE 30 mmol/L (21-32); CHLORIDE 103 mmol/L (98-107); GLUCOSE 92 mg/dl (70-99); MAGNESIUM 2.4 mg/dl (1.8-2.4); POTASSIUM 3.6 mmol/L (3.5-5.1); SODIUM 141 mmol/L (136-145)
[2017-04-09 14:24] LABS: PHOSPHORUS 2.4 mg/dl (2.5-4.9)
== END | disposition home or self-care (01) ==
LOC: C.LAB 11:43
PROVIDERS: ATTEND Internal Medicine
DX: N17.9 Acute kidney failure, unspecified (principal)

== ENCOUNTER → 2017-04-18 | Outpatient (CLI) | payer OTHER ==
[2017-04-18 17:56] LABS: BASO % 0.3 %; BASO ABS # 0.02 K/uL (0-0.2); COMPLETE YES; EOS % 1.3 %; HEMATOCRIT 46.6 % (42-52); IG% 0.2 %; LYMPH % 13.3 %; LYMPH ABS # 0.82 K/uL (1.2-3.4); MEAN CELL VOLUME 85.5 fL (80-100); MEAN CORPUSCULAR HEMOGLOBIN 30.1 pg (25-34); MEAN CORPUSCULAR HGB CONC 35.2 g/dl (32-36); MEAN PLATELET VOLUME 8.8 fL (7.4-10.4); MONO % 5.3 %; NEUT % 79.6 %; PLATELET COUNT 319 K/uL (130-400); RED BLOOD COUNT 5.45 M/uL (4.7-6.1); WHITE BLOOD COUNT 6.18 K/uL (4.8-10.8)
[2017-04-18 18:24] LABS: BLOOD UREA NITROGEN 13 mg/dl (7-18); BUN/CREATININE RATIO 11.6 (10-20); CALCIUM 9.4 mg/dl (8.5-10.1); CARBON DIOXIDE 29 mmol/L (21-32); CHLORIDE 106 mmol/L (98-107); GLUCOSE 98 mg/dl (70-99); POTASSIUM 3.8 mmol/L (3.5-5.1); SODIUM 142 mmol/L (136-145)
[2017-04-18 18:34] LABS: THYROID STIMULATING HORMONE 0.743 uIu/ml (0.300-4.500)
== END | disposition home or self-care (01) ==
LOC: C.LAB 17:14
PROVIDERS: ATTEND Family Medicine
DX: R00.2 Palpitations (principal)

== ENCOUNTER 2017-04-26 22:03 | Emergency (ER) | payer OTHER ==
[~2017-04-26] VITALS: Ht 170.2 cm; Wt 69.3 kg
[2017-04-26 22:13] VITALS: TEMP 36.9; Ht 170.2 cm; Wt 69.3 kg
[2017-04-26] MEDS ORDERED: hydrOXYzine HCL 25 MG TAB PO STA (22:25)
--- NOTE | 2017-04-26 23:12 | EMERGENCY ROOM VISIT NOTE ---
History Report prepared by Lynsey: Melissa Ruffin Under the Supervision of: Dr. Madison Rock M.D. First contact with patient: 22:23 Chief Complaint: CARDIAC ASSESSMENT Stated Complaint: SLOW HEARTBEAT, NUMBNESS ALL OVER BODY Nursing Triage Summary: pt states "I feel like my heart is beating slowly. It's not pumping blood into my hands." pt also states "does the doctor know my tooth is inflamed? it was a root canal like a year ago, but it's been hurting. I have an appointment with my dentist tomorrow." pt reassured and offered comfort measures. pt alert and oriented x4, breathing regularly and independently. family at bedside. History of Present Illness The patient is a 27 year old male who presents to the Emergency Room with complaints of a constant slow heart rate beginning today. The patient states that he was seen here 1 month ago and had similar symptoms. He reports that he was feeling better throughout the last month but today his symptoms returned. He complains of numbness in his arms and legs and states that his heart cannot pump blood into his hands and feet intermittently. The patient notes that he has seen his PCP for these symptoms and she is not concerned and believes that everything is normal. He complains of pain in the bilateral armpits, chest pain , and tooth pain. He notes that his tooth pain is from a root canal that he had one year ago and he has an appointment with a root canal specialist tomorrow. The patient reports that he is concerned that his symptoms continue to return and he has decided to take a semester off from college. He also states that his temperature is elevated for him because his body temperature normally runs lower than average. Source of History: patient Onset: today Position: other (global) Quality: other (slow heart rate) Timing: constant Associated Symptoms: + chest pain, + numbness Note: Pt complains of bilateral armpit pain. Review of Systems See HPI for pertinent positives & negatives. A total of 10 systems reviewed and were otherwise negative. Past Medical & Surgical Medical Problems: (1) Pyelonephritis (2) Urinary tract infection Family History Patient reports no known family medical history. Social History Smoking Status: Never Smoker Drug Use: none Marital Status: single Occupation Status: [employer] student Current/Historical Medications Scheduled PRN Hydroxyzine Pamoate (Vistaril), 25-50 MG PO Q8 PRN for Anxiety Allergies Coded Allergies: Ciprofloxacin (Unverified Allergy, Unknown, SHAKES, 04/26/17) Ibuprofen (Unverified Allergy, Unknown, UNKNOWN, 04/26/17) Penicillins (Unverified Allergy, Unknown, childhood, 04/26/17) Physical Exam Vital Signs Date Time Temp Pulse Resp B/P (MAP) Pulse Ox O2 Delivery O2 Flow Rate FiO2 04/27/17 00:35 91 18 137/74 97 04/26/17 23:58 76 04/26/17 23:40 84 18 124/63 95 Room Air 04/26/17 22:37 Room Air 04/26/17 22:13 36.9 113 22 97/61 93 Room Air Physical Exam Vital signs reviewed. General: Well-appearing male, in no significant distress. HEENT: No scleral icterus, PERRLA, neck supple. Atraumatic. Cardiovascular: Regular rate and rhythm, no extra sounds. Pulmonary: Clear to auscultation bilaterally, normal work of breathing. Abdomen: Soft, nontender, nondistended, positive bowel sounds. Musculoskeletal: Atraumatic, no peripheral edema. Neurologic: Patient awake alert and oriented x 3, full strength in all 4 extremities. Cranial nerves 2 through 12 grossly intact. Skin: Warm, dry, no rash Medical Decision & Procedures Laboratory Results 04/26/17 23:10 Red Blood Count 5.32, Mean Corpuscular Volume 85.7, Mean Corpuscular Hemoglobin 30.3, Mean Corpuscular Hemoglobin Concent 35.3, Mean Platelet Volume 8.8, Neutrophils (%) (Auto) 67.5, Lymphocytes (%) (Auto) 18.3, Monocytes (%) (Auto) 9.7, Eosinophils (%) (Auto) 3.7, Basophils (%) (Auto) 0.6, Neutrophils # (Auto) 3.46, Lymphocytes # (Auto) 0.94, Monocytes # (Auto) 0.50, Eosinophils # (Auto) 0.19, Basophils # (Auto) 0.03 04/26/17 23:10 Test 04/26/17 23:10 White Blood Count 5.13 K/uL (4.8-10.8) Red Blood Count 5.32 M/uL (4.7-6.1) Hemoglobin 16.1 g/dL (14.0-18.0) Hematocrit 45.6 % (42-52) Mean Corpuscular Volume 85.7 fL (80-100) Mean Corpuscular Hemoglobin 30.3 pg (25-34) Mean Corpuscular Hemoglobin Concent 35.3 g/dl (32-36) Platelet Count 281 K/uL (130-400) Mean Platelet Volume 8.8 fL (7.4-10.4) Neutrophils (%) (Auto) 67.5 % Lymphocytes (%) (Auto) 18.3 % Monocytes (%) (Auto) 9.7 % Eosinophils (%) (Auto) 3.7 % Basophils (%) (Auto) 0.6 % Neutrophils # (Auto) 3.46 K/uL (1.4-6.5) Lymphocytes # (Auto) 0.94 K/uL (1.2-3.4) Monocytes # (Auto) 0.50 K/uL (0.11-0.59) Eosinophils # (Auto) 0.19 K/uL (0-0.5) Basophils # (Auto) 0.03 K/uL (0-0.2) RDW Standard Deviation 38.3 fL (36.4-46.3) RDW Coefficient of Variation 12.2 % (11.5-14.5) Immature Granulocyte % (Auto) 0.2 % Immature Granulocyte # (Auto) 0.01 K/uL (0.00-0.02) Urine Color YELLOW Urine Appearance CLEAR (CLEAR) Urine pH 7.0 (4.5-7.5) Urine Specific [place] 1.012 (1.000-1.030) Urine Protein NEG (NEG) Urine Glucose (UA) 1+ (NEG) Urine Ketones TRACE (NEG) Urine Occult Blood NEG (NEG) Urine Nitrite NEG (NEG) Urine Bilirubin NEG (NEG) Urine Urobilinogen NEG (NEG) Urine Leukocyte Esterase NEG (NEG) Anion Gap 8.0 mmol/L (3-11) Est Creatinine Clear Calc Drug Dose 81.2 ml/min Estimated GFR () 87.9 Estimated GFR (Non- 75.8 BUN/Creatinine Ratio 10.0 (10-20) Calcium Level 9.6 mg/dl (8.5-10.1) Total Bilirubin 0.5 mg/dl (0.2-1) Direct Bilirubin 0.1 mg/dl (0-0.2) Aspartate Amino Transf (AST/SGOT) 9 U/L (15-37) Alanine Aminotransferase (ALT/SGPT) 23 U/L (12-78) Alkaline Phosphatase 96 U/L (45-117) Total Creatine Kinase 111 U/L (39-308) Total Protein 7.3 gm/dl (6.4-8.2) Albumin 4.4 gm/dl (3.4-5.0) Laboratory results per my review. Medications Administered Medications (Trade) Dose Ordered Sig/Ignacio Route Start Time Stop Time Status Last Admin Dose Admin Hydroxyzine HCl (Vistaril Tab) 50 mg NOW STAT PO 04/26/17 22:25 04/26/17 22:26 DC 04/26/17 22:36 50 MG Potassium Chloride (Klor-Con M10) 40 meq NOW STAT PO 04/27/17 00:08 04/27/17 00:09 DC 04/27/17 00:22 40 MEQ ED Course 2223: Past medical records reviewed. The patient was evaluated in room C3. A complete history and physical examination was performed. 2225: Vistaril Tab 50mg PO. 0008: Potassium Chloride 40meq PO. 0039: Upon reevaluation, the patient appeared to have improvement of his symptoms. I discussed findings with the patient. He verbalized agreement of the treatment plan. The patient was discharged home. Medical Decision Differential diagnosis: Etiologies such as metabolic, infection, hypo/hyperglycemia, electrolyte abnormalities, cardiac sources, intracerebral event, toxicologic, neurologic, as well as others were entertained. This patient was evaluated and appeared to be in no significant distress. The patient has been seen on multiple occasions in this emergency department, twice previously by me. The patient is clinically stable. Laboratory work reveals a mild hypokalemia. H&H is stable. Total CK is normal. There is no evidence of renal insufficiency. The patient was given 50 mg of oral Vistaril. He seemed to do well with this treatment. He was given 40 mEq of oral potassium. He was discharged to the care of family members. I did provide a prescription for Vistaril to be used as needed. Explained that I feel many of his symptoms are secondary to an anxiety disorder and he should be seen by a primary provider. Patient will return to the ER for worsening of symptoms or any medical concerns. Medication Reconcilliation Current Medication List: was personally reviewed by me Blood Pressure Screening Patient's blood pressure: Normal blood pressure Blood pressure disposition: Did not require urgent referral Impression Primary Impression: Hypokalemia Additional Impression: Anxiety Scribe Attestation The scribe's documentation has been prepared under my direction and personally reviewed by me in its entirety. I confirm that the note above accurately reflects all work, treatment, procedures, and medical decision making performed by me. Departure Information Dispostion Home / Self-Care Prescriptions Hydroxyzine Pamoate (VISTARIL) 25 Mg Cap 25-50 MG PO Q8 Y for Anxiety, #30 CAP Prov: Madison Rock M.D. 04/27/17 Referrals Carolyn Werner MD (PCP) Forms IMPORTANT VISIT INFORMATION Patient Instructions My [facility] Additional Instructions Diagnosis: Hypokalemia, Anxiety Vistaril 25-50 mg every 8 hours as needed for anxiety Increase the potassium in your diet (bananas and potatoes) Follow up with your doctor this week Return to the ED for worsening of symptoms or any medical concerns. Problem Qualifiers
[2017-04-26 23:22] LABS: BASO % 0.6 %; BASO ABS # 0.03 K/uL (0-0.2); COMPLETE YES; EOS % 3.7 %; HEMATOCRIT 45.6 % (42-52); IG% 0.2 %; LYMPH % 18.3 %; LYMPH ABS # 0.94 K/uL (1.2-3.4); MEAN CELL VOLUME 85.7 fL (80-100); MEAN CORPUSCULAR HEMOGLOBIN 30.3 pg (25-34); MEAN CORPUSCULAR HGB CONC 35.3 g/dl (32-36); MEAN PLATELET VOLUME 8.8 fL (7.4-10.4); MONO % 9.7 %; NEUT % 67.5 %; PLATELET COUNT 281 K/uL (130-400); RED BLOOD COUNT 5.32 M/uL (4.7-6.1); WHITE BLOOD COUNT 5.13 K/uL (4.8-10.8)
[2017-04-26 23:24] LABS: URINE APPEARANCE CLEAR (CLEAR); URINE BILIRUBIN NEG (NEG); URINE COLOR YELLOW; URINE NITRITE NEG (NEG); URINE SPECIFIC GRAVITY 1.012 (1.000-1.030); UROBILINOGEN NEG (NEG); ZZUR CULT IF INDIC CLEAN CATCH NO
[2017-04-26 23:31] LABS: MANUAL MICROSCOPIC REQUIRED? NO; REVIEW REQ? NO
[2017-04-26 23:39] LABS: CALCIUM 9.6 mg/dl (8.5-10.1); CREATININE 1.3 mg/dl (0.60-1.40)
[2017-04-27] MEDS ORDERED: POTASSIUM CHLORIDE 10 MEQ TABCR PO STA (00:08)
[2017-04-27] MEDS ORDERED: HYDR1CAP85 PO (00:33)
[2017-04-27 00:35] VITALS: BP 137/74; PULSE 91; O2SAT 97
== END 2017-04-27 00:35 | disposition home or self-care (01) ==
LOC: C.EDB 22:04 → C.EDC 04-27 00:35
DX: E87.6 Hypokalemia (principal); F41.9 Anxiety disorder, unspecified; Z87.440 Personal history of urinary (tract) infections; Z88.0 Allergy status to penicillin; Z88.2 Allergy status to sulfonamides; Z88.6 Allergy status to analgesic agent

== ENCOUNTER → 2017-05-03 | Outpatient (CLI) | payer OTHER ==
[2017-05-03 12:46] LABS: BLOOD UREA NITROGEN 16 mg/dl (7-18); BUN/CREATININE RATIO 14.3 (10-20); CALCIUM 9.4 mg/dl (8.5-10.1); CARBON DIOXIDE 32 mmol/L (21-32); CHLORIDE 105 mmol/L (98-107); GLUCOSE 82 mg/dl (70-99); MAGNESIUM 2.3 mg/dl (1.8-2.4); POTASSIUM 3.8 mmol/L (3.5-5.1); SODIUM 140 mmol/L (136-145)
== END | disposition home or self-care (01) ==
LOC: C.LAB 11:44
PROVIDERS: ATTEND Family Medicine
DX: E87.6 Hypokalemia (principal)

== ENCOUNTER → 2017-05-08 | Outpatient (CLI) | payer OTHER ==
[2017-05-08 16:04] LABS: BLOOD UREA NITROGEN 18 mg/dl (7-18); BUN/CREATININE RATIO 15.9 (10-20); CALCIUM 9.6 mg/dl (8.5-10.1); CARBON DIOXIDE 30 mmol/L (21-32); CHLORIDE 105 mmol/L (98-107); GLUCOSE 116 mg/dl (70-99); MAGNESIUM 2.4 mg/dl (1.8-2.4); PHOSPHORUS 3.6 mg/dl (2.5-4.9); POTASSIUM 3.7 mmol/L (3.5-5.1); SODIUM 142 mmol/L (136-145)
== END | disposition home or self-care (01) ==
LOC: C.LAB1850 14:21
PROVIDERS: ATTEND Internal Medicine Nephrology
DX: E87.6 Hypokalemia (principal)

== ENCOUNTER → 2017-05-16 | Outpatient (CLI) | payer OTHER ==
[2017-05-16 10:25] LABS: BLOOD UREA NITROGEN 22 mg/dl (7-18); BUN/CREATININE RATIO 19.6 (10-20); CALCIUM 9.7 mg/dl (8.5-10.1); CARBON DIOXIDE 30 mmol/L (21-32); CHLORIDE 104 mmol/L (98-107); GLUCOSE 76 mg/dl (70-99); PHOSPHORUS 3.1 mg/dl (2.5-4.9); POTASSIUM 3.6 mmol/L (3.5-5.1); SODIUM 139 mmol/L (136-145)
== END | disposition home or self-care (01) ==
LOC: C.LAB1850 09:20
PROVIDERS: ATTEND Internal Medicine Nephrology
DX: E87.6 Hypokalemia (principal)